=== PATIENT | male | born 1960 | race Caucasian/White ===

== ENCOUNTER 2024-09-19 15:24 | Inpatient (IN) | payer MEDICARE, OTHER ==
[2024-09-20] MEDS ORDERED: traMADol 50 MG TAB PO PRN (17:45)
[2024-09-20] MEDS: ATORVASTATIN 20 MG TAB PO SCH (21:35)
[2024-09-20] MEDS: SENNOSIDES-DOCUSATE SODIUM 1 EACH TAB PO SCH (22:11)
[2024-09-20] MEDS: ACETAMINOPHEN TAB 325 MG TAB PO PRN (22:11)
[2024-09-21 06:50] LABS: ALT 18 U/L (4-49); AST 20 U/L (17-59); African American GFR (CKD) >90 (>60 ml/min/1.73 sqM); Albumin 3.5 g/dL (3.5-5.0); Alkaline Phosphatase 60 U/L (38-126); Anion Gap 4 mmol/L; Blood Urea Nitrogen 20 mg/dL (9-20); Calcium 8.9 mg/dL (8.4-10.2); Carbon Dioxide 24 mmol/L (22-30); Chloride 108 mmol/L (98-107); Glucose 94 mg/dL (74-99); Non-African American GFR(CKD) >90 (>60 ml/min/1.73 sqM); Potassium 4.3 mmol/L (3.5-5.1); Sodium 136 mmol/L (137-145); Total Bilirubin 0.6 mg/dL (0.2-1.3)
[2024-09-21 06:56] LABS: HCT 33.6 % (39.0-53.0); HGB 11.1 gm/dL (13.0-17.5); MCH 28.6 pg (25.0-35.0); MCV 86.6 fL (80.0-100.0); Mean Platelet Volume 11.8; Platelet Count 207 k/uL (150-450); RBC 3.88 m/uL (4.30-5.90); RDW 13.8 % (11.5-15.5); WBC 7.6 k/uL (3.8-10.6)
[2024-09-21 07:33] LABS: Lymphocytes # (M) 2.05 k/uL (1.0-4.8); Neutrophils # (M) 4.94 k/uL (1.3-7.7); Neutrophils % (M) 65 %; Nucleated Red Blood Cells 0 /100 WBC (0-0); Total Cells Counted 100
[2024-09-21 07:34] LABS: RBC Morphology Normal
[2024-09-21] MEDS: LIDOCAINE 4% PATCH TOPICAL SCH (07:37)
[2024-09-21] MEDS: amLODIPine 5 MG TAB PO SCH (07:38)
--- NOTE | 2024-09-21 08:45 | XR ---
EXAMINATION TYPE: XR chest 2V DATE OF EXAM: 09/21/2024 8:37 AM COMPARISON: None CLINICAL INDICATION: Male, 64 years old with history of right pleural effusion and rib fracture; [facility] TECHNIQUE: XR chest 2V Frontal and lateral views of the chest. FINDINGS: Lungs/Pleura: Thickening of the right costophrenic angle. There is no evidence of left pleural effusi on, focal consolidation, or pneumothorax. Pulmonary vascularity: Unremarkable. Heart/mediastinum: Cardiomediastinal silhouette is unremarkable. Musculoskeletal: No acute osseous pathology. IMPRESSION: Small right pleural effusion. [facility], , 09/21/2024 8:43 AM
[2024-09-21] MEDS: KETOROLAC 15 MG/ML 1 ML VIAL IVP SCH (09:30)
--- NOTE | 2024-09-21 10:00 | P.CNPUL ---
History of Present Illness Consult date: 09/21/24 Reason for consult: dyspnea, chest pain, pleural effusion Chief complaint: Right-sided pleuritic chest pain and shortness of breath History of present illness: 64-year-old non-smoker male transferred from [facility] for right-sided organized loculated pleural effusion. Patient was admitted 3 days ago at [facility] for 5-day history of right-sided pleuritic chest pain intermittent dry nonproductive cough some shortness of breath. Patient had a fall 5-day prior to presentation with blunt trauma to the chest wall. Symptoms of note that started recently prior to coming to [facility] emergency department, CT scan of the chest performed over there with IV contrast no PE seen, right-sided moderate pleural effusion seen with some evidence of early loculation. Patient was managed with pain medicine, over the weekend ultrasound not available, right-sided thoracentesis attempted but only 1 cc of bloody pleural fluid was obtained, postprocedure chest x-ray no pneumothorax seen. In addition patient also noted to have displaced seventh rib fracture right side. Patient transferred to [facility] for evaluation of thoracic surgery in relation to VATS procedure Patient examined today, pain on the right side and shortness of breath improved compared to prior exam, still have component of pleuritic chest pain, chest x- ray performed at [facility] [id number] pleural effusion. Patient has been evaluated by cardiothoracic surgery recommendations pending ultrasound of the chest has been ordered Significant labs done white cell count 7.5, hemoglobin hematocrit 11/33 platelet count 207 chemistry significant for hyponatremia sodium 136, potassium 4.3, Review of Systems All systems: negative Past Medical History Past Medical History: Hyperlipidemia, Hypertension History of Any Multi-Drug Resistant Organisms: None Reported Past Surgical History: Appendectomy, Hernia Repair, Tonsillectomy Additional Past Surgical History / Comment(s): COLONOSCOPY. LT shoulder surgeries X 4. RT shoulder surgery Past Anesthesia/Blood Transfusion Reactions: No Reported Reaction Past Psychological History: No Psychological Hx Reported Smoking Status: Never smoker Past Alcohol Use History: None Reported Past Drug Use History: None Reported - Past Family History Mother Family Medical History: No Reported History Medications and Allergies Home Medications Medication Instructions Recorded Confirmed Type Simvastatin [Zocor] 20 mg PO HS 02/06/16 09/20/24 History amLODIPine [Norvasc] 5 mg PO DAILY 09/20/24 09/20/24 History Allergies Allergy/AdvReac Type Severity Reaction Status Date / Time bee venom protein (honey bee) Allergy Anaphylaxis Verified 09/20/24 19:31 hydromorphone [From Dilaudid] AdvReac Intermediate Nausea & Verified 09/20/24 17:31 Vomiting Physical Exam Vitals: Vital Signs Temp Pulse Resp BP Pulse Ox 09/21/24 08:25 18 09/21/24 07:32 98 F 59 L 14 145/77 95 09/21/24 07:26 98.2 F 63 18 137/80 96 09/21/24 04:00 98.2 F 52 L 19 133/79 95 09/21/24 02:00 15 09/21/24 00:00 98.0 F 55 L 15 145/62 96 09/20/24 20:00 55 L 15 09/20/24 19:40 98.0 F 61 19 149/82 95 09/20/24 17:30 16 09/20/24 16:20 98.6 F 63 16 162/86 98 Intake and Output 09/20/24 09/21/24 09/21/24 22:59 06:59 14:59 Intake Total 118 480 180 Balance 118 480 180 Intake: Oral 118 480 180 Other: # Voids 2 # Bowel Movements 0 Weight 90 kg 89.7 kg - Constitutional General appearance: average body habitus, cooperative, disheveled, mild distress - EENT Eyes: EOMI, PERRLA ENT: normal oropharynx Ears: bilateral: normal - Respiratory Respiratory: right: diminished, dullness, left: CTA - Cardiovascular Rhythm: regular Heart sounds: normal: S1, S2 - Gastrointestinal General gastrointestinal: normal bowel sounds - Integumentary Integumentary: normal turgor - Neurologic Neurologic: CNII-XII intact - Musculoskeletal Musculoskeletal: gait normal, generalized weakness, strength equal bilaterally - Psychiatric Psychiatric: A&O x's 3, appropriate affect, intact judgment & insight Results - Laboratory Findings CBC and BMP: 09/21/24 05:43 09/21/24 05:43 Abnormal lab findings: Abnormal Labs 09/21/24 09/21/24 05:43 05:43 RBC 3.88 L Hgb 11.1 L Hct 33.6 L Sodium 136 L Chloride 108 H Total Protein 6.0 L - Diagnostic Findings Chest x-ray: report reviewed, image reviewed (Finding as noted above) Assessment and Plan Assessment: Right-sided loculated pleural effusion appears to be organized hemothorax Right-sided chest pain related to above as well as seventh rib right displaced fracture Seventh rib right displaced fracture Status post mechanical fall and blunt trauma to the right side of the chest Dyslipidemia Essential hypertension Plan: Continue deep breathing/incentive spirometry Pain management with narcotic as well as nonnarcotic and lidocaine patch Consult cardiothoracic surgery for evaluation of VATS procedure CT scan of the chest without contrast Continue antihypertensive agents Norvasc Continue high intensity statins with atorvastatin Follow-up on ultrasound of the chest Further recommendations pending plan of care as per clinical response with the patient Time with Patient: Greater than 30
--- NOTE | 2024-09-21 11:31 | P.GSCN ---
History of Present Illness Consult date: 09/21/24 Reason for Consult: Right pleural effusion status post fall from standing. Requesting physician: Jonathan Hood History of present illness: This is a 64-year-old gentleman who follows on an outpatient for his primary care with Dr. Prince Salazar. He has a past medical history significant for a fall from standing on September 11, 2024 with a fractured seventh rib, hypertension, dyslipidemia, osteoarthritis, irritable bowel syndrome and is a lifetime non-smoker. The patient presented to the hospital at that time on September 11, 2024 to the emergency department at [facility] after falling and landing on his right side. The patient reports they did a chest x- ray and subsequently discharged him home, he reports the chest x-ray showed no acute pulmonary process or rib fracture. He presented back to the emergency department on September 17, 2024 with complaints of right-sided chest pain, shortness of breath, nausea and feelings like he was going to pass diarrhea. He denies any recent fever, chills, vomiting, hematemesis, hemoptysis, headache, visual disturbances, constipation, diarrhea, presyncope or syncope. According to the patient's chart a chest x-ray was completed at [facility], which demonstrated a right basilar atelectasis and effusion. For further evaluation a CT scan of the chest was completed on September 17, 2024 which demonstrated a 7 rib fracture mildly displaced, a right-sided pleural effusion and no pulmonary embolus seen. The CT scan of the chest also demonstrated mild cardiomegaly with asymmetric dilation of the right ventricle suspicious for right-sided heart failure, mild pulmonary vascular congestion with a large right pleural effusion and adjacent compressive atelectasis. The patient reports due to the findings of cardiomegaly on the CT scan of the chest he underwent a transthoracic 2D echocardiogram with results unavailable at this time. The pat ient reports this morning that his pain is much better controlled and is currently rating his pain 2 out of 10 on the pain scale. Room air oxygen saturations are 96%. A chest x-ray was completed here this morning at [facility] which demonstrates a small right pleural effusion. Tomas bsequently, due to the patient's findings of a large right pleural effusion on the CT scan at [facility], the patient was transferred to [facility] with a consult placed to Dr. Barnett from cardiothoracic surgery for further evaluation and treatment recommendations. Review of Systems A review of systems was completed and was negative except as mentioned in the HPI. Past Medical History Past Medical History: Hyperlipidemia, Hypertension, Osteoarthritis (OA) Additional Past Medical History / Comment(s): Irritable bowel syndrome History of Any Multi-Drug Resistant Organisms: None Reported Past Surgical History: Appendectomy, Hernia Repair, Tonsillectomy Additional Past Surgical History / Comment(s): COLONOSCOPY. LT shoulder surgeries X 4. RT shoulder surgery. Left hip replacement Past Anesthesia/Blood Transfusion Reactions: No Reported Reaction Past Psychological History: No Psychological Hx Reported Smoking Status: Never smoker Past Alcohol Use History: None Reported Past Drug Use History: None Reported - Past Family History Mother Family Medical History: Cancer (Skin), Hypertension Additional Family Medical History / Comment(s): GI problems Father Family Medical History: Hypertension Additional Family Medical History / Comment(s): Still living and is 90 Medications and Allergies Home Medications Medication Instructions Recorded Confirmed Type Simvastatin [Zocor] 20 mg PO HS 02/07/16 09/20/24 History amLODIPine [Norvasc] 5 mg PO DAILY 09/20/24 09/20/24 History Allergies Allergy/AdvReac Type Severity Reaction Status Date / Time bee venom protein (honey bee) Allergy Anaphylaxis Verified 09/20/24 19:31 hydromorphone [From Dilaudid] AdvReac Intermediate Nausea & Verified 09/20/24 17:31 Vomiting Surgical - Exam Vital Signs Temp Pulse Resp BP Pulse Ox 98.6 F 63 16 162/86 98 09/20/24 16:20 09/20/24 16:20 09/20/24 16:20 09/20/24 16:20 09/20/24 16:20 - General Mild pain to his right chest 2 out of 10 on the pain scale well developed, well nourished, no distress - Eyes PERRL, normal ocular movement, no pale, no icteric - ENT normal pinna, normal nares, normal mucosa, no hearing loss, no congestion - Neck Neck is supple, no lymphadenopathy. no masses, no bruits, trachea midline, no venous distension - Respiratory Lung sounds essentially clear to his left lobes, diminished to his right lower lobe. Respirations are symmetrical and nonlabored. Oxygen saturation is 96% on room air. No wheezes, rhonchi or crackles. - Cardiovascular Regular rhythm and rate. S1 and S2 present, negative for S3, gallop or murmur. - Abdomen Abdomen is soft, nontender and nondistended. Active bowel sounds present all 4 abdominal quadrants. No guarding rigidity. No organomegaly appreciated. - Genitourinary Deferred - Rectum Deferred - Integumentary Skin is warm and dry. No clubbing or cyanosis is present. Lidoderm patch in place to his right chest. no rash, no growths, no abnormal pigmentation - Neurologic No focal deficits. normal coordination, normal sensation - Musculoskeletal Moves all 4 extremities with equal strength bilateral. normal gait, normal posture - Psychiatric oriented to time, oriented to person, oriented to place, speech is normal, memory intact Results - Labs 09/21/24 05:43 09/21/24 05:43 Abnormal Lab Results - Last 24 Hours (Table) 09/21/24 09/21/24 Range/Units 05:43 05:43 RBC 3.88 L (4.30-5.90) m/uL Hgb 11.1 L (13.0-17.5) gm/dL Hct 33.6 L (39.0-53.0) % Sodium 136 L (137-145) mmol/L Chloride 108 H (98-107) mmol/L Total Protein 6.0 L (6.3-8.2) g/dL Diabetes panel 09/21/24 Range/Units 05:43 Sodium 136 L (137-145) mmol/L Potassium 4.3 (3.5-5.1) mmol/L Chloride 108 H (98-107) mmol/L Carbon Dioxide 24 (22-30) mmol/L BUN 20 (9-20) mg/dL Creatinine 0.88 (0.66-1.25) mg/dL Glucose 94 (74-99) mg/dL Calcium 8.9 (8.4-10.2) mg/dL AST 20 (17-59) U/L ALT 18 (4-49) U/L Alkaline Phosphatase 60 (38-126) U/L Total Protein 6.0 L (6.3-8.2) g/dL Albumin 3.5 (3.5-5.0) g/dL Calcium panel 09/21/24 Range/Units 05:43 Calcium 8.9 (8.4-10.2) mg/dL Albumin 3.5 (3.5-5.0) g/dL Pituitary panel 09/21/24 Range/Units 05:43 Sodium 136 L (137-145) mmol/L Potassium 4.3 (3.5-5.1) mmol/L Chloride 108 H (98-107) mmol/L Carbon Dioxide 24 (22-30) mmol/L BUN 20 (9-20) mg/dL Creatinine 0.88 (0.66-1.25) mg/dL Glucose 94 (74-99) mg/dL Calcium 8.9 (8.4-10.2) mg/dL Adrenal panel 09/21/24 Range/Units 05:43 Sodium 136 L (137-145) mmol/L Potassium 4.3 (3.5-5.1) mmol/L Chloride 108 H (98-107) mmol/L Carbon Dioxide 24 (22-30) mmol/L BUN 20 (9-20) mg/dL Creatinine 0.88 (0.66-1.25) mg/dL Glucose 94 (74-99) mg/dL Calcium 8.9 (8.4-10.2) mg/dL Total Bilirubin 0.6 (0.2-1.3) mg/dL AST 20 (17-59) U/L ALT 18 (4-49) U/L Alkaline Phosphatase 60 (38-126) U/L Total Protein 6.0 L (6.3-8.2) g/dL Albumin 3.5 (3.5-5.0) g/dL - Imaging Chest x-ray: report reviewed, image reviewed Additional studies: Ultrasound of the chest results remain pending. Assessment and Plan Assessment: Right-sided loculated pleural effusion, status post fall from standing Right-sided chest pain, likely secondary to fracture of seventh rib right chest Hypertension Hyperlipidemia Osteoarthritis Lifetime non-smoker Plan: The patient was seen and examined at his bedside on the third floor cardiac stepdown unit, with his daughter present at his bedside. His chart and diagnostics were reviewed. His case was discussed in detail with Dr. Tyrel Barnett from cardiothoracic surgery. Ultrasound results of the chest remain pending. We will consult interventional radiology for pigtail catheter placement, once pigtail has been placed connect to low continuous wall suction - 20 cm H2O. The patient may require alteplase/dornase treatments once the pigtail catheter has been placed. Pain management per current as needed orders. An incentive spirometry has been ordered and will encourage use 10 times every hour while awake. Continue to monitor daily chest x-rays for resolution of right-sided pleural effusion. Increase activity as tolerated, out of bed for all meals. Ambulate as tolerated. Medical management other comorbidities per primary care service and pulmonary care service. More recommendations to follow based on patient's clinical course. Thank you Dr. Hood for this consult and we look forward to working with you in the care of this patient. I have personally seen and examined the patient, performed the documentation and the assessment and plan as written. Number of minutes spent on the visit: 30. SWATHI Love
--- NOTE | 2024-09-21 11:42 | US ---
EXAMINATION TYPE: US chest DATE OF EXAM: 09/21/2024 COMPARISON: NONE CLINICAL INDICATION: Male, 64 years old with history of right pleural effusion; TECHNIQUE: Grayscale imaging of the chest. Targeted ultrasound of the posterior lower right hemithor ax FINDINGS: EXAM MEASUREMENTS: Right Pleural Effusion pocket size: 2.3 cm Right skin surface to fluid distance: 17.7 cm Right side marked for possible thoracentesis outside the dept. Pulmonologists are able to review the images in the patient?s EMR. IMPRESSIONS: Large Right pleural effusion marked for thoracentesis. [facility], , 09/21/2024 11:39 AM
--- NOTE | 2024-09-21 12:02 | CT ---
EXAMINATION TYPE: CT chest wo con CT DLP: 386.7 mGycm, Automated exposure control for dose reduction was used. DATE OF EXAM: 09/21/2024 11:47 AM COMPARISON: Ultrasound chest 09/21/2024, chest radiograph 09/21/2024, outside institution CTA chest 1 11/17/2023 CLINICAL INDICATION:Male, 64 years old with history of Right-sided loculated pleural effusion; PH[facility], F luid on lungs, recent Rt sided rib fx TECHNIQUE: Multiple axial images were obtained through the chest without IV contrast. Lack of IV or o ral contrast limits evaluation of solid and hollow organ viscera. . Coronal and sagittal reformats re viewed. FINDINGS: LUNGS/ PLEURA: Left lung is relatively clear with minimal left lower lobe subsegmental atelectasis. N o pneumothorax. Moderate to large size right pleural effusion with some hyperdense components layerin g dependently. Slightly decreased size from prior CT. Complete atelectasis of the right lower lobe wi th some air bronchograms. Remaining right lung is clear. AIRWAY: Patent and unremarkable.. HEART: Size within normal limits.Trace pericardial effusion. Small coronary arterial calcifications. MEDIASTINUM: No gross evidence of adenopathy. VASCULATURE: Descending thoracic aortic aneurysm measured 4.0 cm. Ectasia of the aortic root measurin g up to 3.9 cm. Descending thoracic aorta measures up to 2.6 cm. Aneurysm dilatation of the visualize d infrarenal abdominal aorta measuring up to 3.2 cm. MUSCULOSKELETAL: Acute right anterior lateral minimally displaced seventh rib fracture (series 205, i mage 44). Post surgical changes right shoulder arthroplasty. SOFT TISSUES/LYMPH NODES: Unremarkable. LOWER NECK: No significant findings. UPPER ABDOMEN: No significant findings. IMPRESSION: 1. Marginal decrease in size of moderate to large right pleural effusion. There is layering hyperdens e components likely representing hemothorax. 2. Minimally displaced acute right anterolateral seventh rib fracture redemonstrated. 3. Trace similar pericardial effusion. 4. Ascending thoracic aortic aneurysm measuring up to 4.0 cm. Ectasia of the aortic root measures 3.9 cm. Partial visualization of the infrarenal abdominal aortic aneurysm measuring at least 3.2 cm. [facility], , 09/21/2024 12:00 PM
[2024-09-21] MEDS: ENOXAPARIN 40 MG/0.4 ML SYRINGE SQ SCH (16:13)
[2024-09-21 16:50] LABS: INR 0.9 (<1.2); Prothrombin Time 10.4 sec (10.0-12.5)
[2024-09-21] MEDS: ATORVASTATIN 10 MG TAB PO SCH (20:02)
[2024-09-21] MEDS: MELATONIN 5 MG TABLET PO PRN (20:07)
--- NOTE | 2024-09-21 20:36 | HP ---
HISTORY AND PHYSICAL CHIEF COMPLAINT: Right-sided pleural effusion, chest pain, and shortness of breath. HISTORY OF PRESENT ILLNESS: This is a 64-year-old gentleman with a past medical history of hypertension, hyperlipidemia, who was admitted with shortness of breath and chest pain, was found to have massive right pleural effusion. [facility] Dr. Hood attempted pleural tap, in which only minimal fluid obtained. The patient was transferred for possible evaluation by Cardiothoracic Surgery and VATS procedure versus aspiration. There is no history of any fever, rigors, or chills at this time. PAST MEDICAL HISTORY: Hypertension, hyperlipidemia. Rest of the history and rest of the chart is also reviewed. HOME MEDICATIONS: Reviewed, Norvasc, doses and rest of medications reviewed. ALLERGIES: Bee venom. FAMILY HISTORY: History of hypertension. SOCIAL HISTORY: No smoking. No alcohol intake. REVIEW OF SYSTEMS: Fourteen-point review is negative except as mentioned earlier. PHYSICAL EXAMINATION: VITAL SIGNS: Pulse is 85, blood pressure 140/80, respirations 14. HEENT: Conjunctivae normal. NECK: No JVD. CARDIOVASCULAR: S1, S2. RESPIRATIONS: Breath sounds diminished at the bases. ABDOMEN: Soft, nontender. LEGS: No edema. NERVOUS SYSTEM: Nonfocal. LABORATORY DATA: Hemoglobin 11.1. Otherwise, chest CT, moderate large right pleural effusion with layering right anterolateral 7th rib fracture, ascending thoracic aortic aneurysm. The rest of the chart is reviewed. ASSESSMENT: 1. Right pleural effusion, possibly hemothorax. 2. Right anterolateral seventh rib fracture. 3. Ascending aortic aneurysm 4 cm with ectasia of aortic root. 4. Hypertension. 5. Hyperlipidemia. 6. Mild anemia. RECOMMENDATIONS: Recommend to continue current management and continue symptomatic treatment. Otherwise, closely follow with Cardiothoracic Surgery and as well as Pulmonology. Guarded prognosis. Further recommendations to follow. Most likely the patient had a fracture and likely secondary hemothorax or pleural effusion. We will continue to monitor. Further recommendations to follow. MMODL / IJN: [id number] /
[2024-09-22 06:58] LABS: Basophils % (A) 0 %; Eosinophils # (A) 0.5 k/uL (0-0.7); Eosinophils % (A) 6 %; HCT 34.1 % (39.0-53.0); HGB 11.2 gm/dL (13.0-17.5); Lymphocytes # (A) 1.8 k/uL (1.0-4.8); Lymphocytes % (A) 23 %; MCH 28.5 pg (25.0-35.0); MCHC 32.9 g/dL (31.0-37.0); MCV 86.5 fL (80.0-100.0); Mean Platelet Volume 11.5; Monocytes # (A) 0.5 k/uL (0-1.0); Monocytes % (A) 7 %; Neutrophils # (A) 4.9 k/uL (1.3-7.7); Neutrophils % (A) 63 %; Platelet Count 234 k/uL (150-450); RBC 3.95 m/uL (4.30-5.90); RDW 13.6 % (11.5-15.5); WBC 7.8 k/uL (3.8-10.6)
[2024-09-22 07:42] LABS: African American GFR (CKD) >90 (>60 ml/min/1.73 sqM); Anion Gap 5 mmol/L; Blood Urea Nitrogen 29 mg/dL (9-20); Calcium 9.2 mg/dL (8.4-10.2); Carbon Dioxide 23 mmol/L (22-30); Chloride 106 mmol/L (98-107); Glucose 96 mg/dL (74-99); Non-African American GFR(CKD) 89 (>60 ml/min/1.73 sqM); Potassium 4.6 mmol/L (3.5-5.1); Sodium 134 mmol/L (137-145)
--- NOTE | 2024-09-22 08:14 | XR ---
EXAMINATION TYPE: XR chest 1V portable DATE OF EXAM: 09/22/2024 6:49 AM COMPARISON: Chest radiograph from one day prior. CLINICAL INDICATION: Male, 64 years old with history of Right pleural effusion; [facility] TECHNIQUE: XR chest 1V portable Frontal view of the chest. FINDINGS: Lungs/Pleura: Thickening of the right costophrenic angle. There is no evidence of left pleural effusi on, focal consolidation, or pneumothorax. Pulmonary vascularity: Unremarkable. Heart/mediastinum: Cardiomediastinal silhouette is unremarkable. Musculoskeletal: No acute osseous pathology. IMPRESSION: Small right pleural effusion. [facility], , 09/22/2024 8:12 AM
--- NOTE | 2024-09-22 10:44 | P.PN ---
Subjective Progress Note Date: 09/22/24 Principal diagnosis: Right-sided loculated pleural effusion appears to be organized hemothorax Right-sided chest pain related to above as well as seventh rib right displaced fracture Seventh rib right displaced fracture Status post mechanical fall and blunt trauma to the right side of the chest Dyslipidemia Essential hypertension September 22, 2024, cardiothoracic surgery has evaluated the patient, recommended more conservative approach with interventional radiology due to the pigtail catheter and use of Pulmozyme and alteplase for organized hemothorax. VATS procedure is currently on hold, CBC from today reviewed white cell count 7.8 hemoglobin platelet count of 234. Coags okay, BUN/creatinine 29/0.91 sodium [address] scan of the chest shows moderate to large right- sided pleural effusion with layering Hyzyd is suggestive of hemothorax, ultraso und showed small pleural effusion, noted IR is on consult for pigtail catheter placement 64-year-old non-smoker male transferred from [facility] for right-sided organized loculated pleural effusion. Patient was admitted 3 days ago at [facility] for 5-day history of right-sided pleuritic chest pain intermittent dry nonproductive cough some shortness of breath. Patie nt had a fall 5-day prior to presentation with blunt trauma to the chest wall. Symptoms of note that started recently prior to coming to [facility] emergency department, CT scan of the chest performed over there with IV contrast no PE seen, right-sided moderate pleural effusion seen with some evidence of early loculation. Patient was managed with pain medicine, over the weekend ultrasound not available, right-sided thoracentesis attempted but only 1 cc of bloody pleural fluid was obtained, postprocedure chest x-ray no pneumothorax seen. In addition patient also noted to have displaced seventh rib fracture right side. Patient transferred to [facility] for evaluation of thoracic surgery in relation to VATS procedure Patient examined today, pain on the right side and shortness of breath improved compared to prior exam, still have component of pleuritic chest pain, chest x-r ay performed at [facility] [id number] pleural effusion. Patient has been evaluated by cardiothoracic surgery recommendations pending ultrasound of the chest has been ordered Significant labs done white cell count 7.5, hemoglobin hematocrit platelet count 207 chemistry significant for hyponatremia sodium 136, potassium 4.3, Objective - Vital Signs Vital signs: Vital Signs Temp 97.9 F 09/22/24 08:45 Pulse 62 09/22/24 10:27 Resp 12 09/22/24 10:27 BP 146/84 09/22/24 10:27 Pulse Ox 97 09/22/24 10:27 FiO2 Intake & Output 09/21/24 09/22/24 09/22/24 18:59 06:59 18:59 Intake Total 540 Balance 540 Weight 89.9 kg Intake: Oral 540 Other: Voiding Method Toilet Toilet # Voids 1 1 # Bowel Movements 0 - Exam - Constitutional General appearance: average body habitus, cooperative, disheveled, mild distress - EENT Eyes: EOMI, PERRLA ENT: normal oropharynx Ears: bilateral: normal - Respiratory Respiratory: right: diminished, dullness, left: CTA - Cardiovascular Rhythm: regular Heart sounds: normal: S1, S2 - Gastrointestinal General gastrointestinal: normal bowel sounds - Integumentary Integumentary: normal turgor - Neurologic Neurologic: CNII-XII intact - Musculoskeletal Musculoskeletal: gait normal, generalized weakness, strength equal bilaterally - Psychiatric Psychiatric: A&O x's 3, appropriate affect, intact judgment & insight - Labs CBC & Chem 7: 09/22/24 06:15 09/22/24 06:15 Labs: Abnormal Lab Results - Last 24 Hours (Table) 09/22/24 09/22/24 Range/Units 06:15 06:15 RBC 3.95 L (4.30-5.90) m/uL Hgb 11.2 L (13.0-17.5) gm/dL Hct 34.1 L (39.0-53.0) % Sodium 134 L (137-145) mmol/L BUN 29 H (9-20) mg/dL Assessment and Plan Assessment: Right-sided loculated pleural effusion appears to be organized hemothorax Right-sided chest pain related to above as well as seventh rib right displaced fracture Seventh rib right displaced fracture Status post mechanical fall and blunt trauma to the right side of the chest Dyslipidemia Essential hypertension Plan: Continue deep breathing/incentive spirometry Pain management with narcotic as well as nonnarcotic and lidocaine patch Consult cardiothoracic surgery for evaluation of VATS procedure, at this point of time cardiothoracic surgery is leaning toward conservative approach of pigtail catheter with instillation of Pulmozyme and Cathflo CT scan of the chest without contrast, reviewed Continue antihypertensive agents Norvasc Continue high intensity statins with atorvastatin Follow-up on ultrasound of the chest, finding reviewed Further recommendations pending plan of care as per clinical response with the patient
--- NOTE | 2024-09-22 11:28 | US ---
EXAMINATION TYPE: US guided chest tube insertion DATE OF EXAM: 09/22/2024 11:12 AM COMPARISON: Prior CT/US. CLINICAL INDICATION:Male, 64 years old with history of see IR consult for ordering information; , rig ht hemothorax TECHNIQUE: Ultrasound-guided chest tube insertion. ATTENDING: Matt Cantu D.O. PROCEDURE: Informed consent was obtained. Initial ultrasound localizer images were taken which showed safest allowable access to the right pleu ral space. The patient was prepped, draped in the usual sterile fashion, and locally anesthetized. A 8.5 polish pig tail catheter was placed utilizing trocar technique. Approximately 1300 mL of bloody thin fluid was drained and sent to the lab for analysis. A bag was t hen attached the catheter. There was no blood loss and post-procedure hemostasis was achieved. The patient tolerated the procedure well without complication. Patient was [facility] floor in stable condition. IMPRESSION: Ultrasound-guided right chest thoracotomy tube placement. [facility], , 09/22/2024 11:26 AM
--- NOTE | 2024-09-22 11:31 | P.PN ---
Subjective Progress Note Date: 09/22/24 Principal diagnosis: Right-sided loculated pleural effusion fracture of right 7th rib status post fall from standing. History of hypertension, hyperlipidemia, osteoarthritis, lifetime non-smoker The patient was seen and examined with Dr. Barnett sitting up in a recliner on the cardiac stepdown unit in no acute distress. Does complain of expected right sided chest pain, denies shortness of breath currently. Remains in sinus rhythm, hemodynamically stable. Currently on room air with oxygen saturation in the mid 90s. Reviewed CT and CXR. Waiting for pigtail cathter to be placed by IR. Dr. Barnett discussed with the patient and his significant other the reason for the pigtail, if no drainage patient may need VATS procedure. Discussed risks/benefits. No other new concerns at this time. Objective - Vital Signs Vital signs: Vital Signs Temp 97.9 F 09/22/24 08:45 Pulse 59 L 09/22/24 08:45 Resp 14 09/22/24 08:45 BP 139/80 09/22/24 08:45 Pulse Ox 98 09/22/24 08:45 FiO2 Intake & Output 09/21/24 09/22/24 09/22/24 18:59 06:59 18:59 Intake Total 540 Balance 540 Weight 89.9 kg Intake: Oral 540 Other: Voiding Method Toilet # Voids 1 1 # Bowel Movements 0 - Exam CONSTITUTIONAL: Appears comfortable, cooperative, no acute distress RESPIRATORY: Lungs sounds diminished on the right. Respirations even, nonlabored. Currently on room air with oxygen saturation 96% CARDIOVASCULAR: S1, S2 present. Regular rate and rhythm, sinus rhythm on telemetry. Palpable peripheral pulses bilaterally GASTROINTESTINAL: Abdomen soft, nontender, nondistended. Active bowel sounds present 4 quadrants. Tolerating diet GENITOURINARY: Continues to void INTEGUMENTARY: Skin is warm and dry NEUROLOGIC: Cranial nerves II through XII intact MUSKULOSKELETAL: Able to move all extremities, strength equal bilaterally, gait normal PSYCHIATRIC: Alert and oriented to person place and time, appropriate affect, intact judgment and insight - Allied health notes Allied health notes reviewed: nursing - Labs CBC & Chem 7: 09/22/24 06:15 09/22/24 06:15 Labs: Abnormal Lab Results - Last 24 Hours (Table) 09/22/24 09/22/24 Range/Units 06:15 06:15 RBC 3.95 L (4.30-5.90) m/uL Hgb 11.2 L (13.0-17.5) gm/dL Hct 34.1 L (39.0-53.0) % Sodium 134 L (137-145) mmol/L BUN 29 H (9-20) mg/dL - Imaging and Cardiology Chest x-ray: report reviewed, image reviewed CT scan - chest: report reviewed, image reviewed Assessment and Plan Assessment: Right-sided loculated pleural effusion, right sided 7th rib fracture, status post fall from standing Right-sided chest pain, likely secondary to above History of hypertension Hyperlipidemia Osteoarthritis Lifetime non-smoker Plan: Will wait for IR to place pigtail cathter, monitor drainage Pain control per current medication regimen Encourage IS, pulmonary hygiene Increase activity as tolerated Medical management of other comorbidities per internal medicine, pulmonology More recommendations to follow
[2024-09-22 19:22] LABS: Glucose, BF Source Pleural Fluid; Glucose, Body Fluid 39 mg/dL
[2024-09-22 19:23] LABS: Appearance,BF Grossly Bloody (Clear)
[2024-09-22 19:34] LABS: LDH, Body Fluid Source Pleural Fluid
--- NOTE | 2024-09-23 03:14 | PN ---
PROGRESS NOTE DATE OF SERVICE: 09/22/2024 SUBJECTIVE: This is a 64-year-old gentleman admitted with right pleural effusion, mostly hemothorax, had a chest tube insertion and drainage and the tube is draining altered blood at this time. Multiple consultants are following the patient closely. The patient apparently fell from a floor of a house, which is being build and injured the right chest resulting in multiple rib fractures. PAST MEDICAL HISTORY: Reviewed. REVIEW OF SYSTEMS: A 14-point review of systems is negative except as mentioned earlier. CURRENT MEDICATIONS: Reviewed. PHYSICAL EXAMINATION: VITAL SIGNS: Pulse is 53, blood pressure 153/80, respirations 14. HEENT: Conjunctivae normal. NECK: No JVD. CARDIOVASCULAR: S1, S2. RESPIRATIONS: Breath sounds diminished in the right side. ABDOMEN: Soft. NERVOUS SYSTEM: Nonfocal. LABORATORY DATA: Reviewed. ASSESSMENT: 1. Right massive hemothorax, possibly secondary to rib fractures, status post chest tube drainage. 2. Right anterolateral seventh rib fracture. 3. Ascending aortic aneurysm 4 cm with ectasia of aortic root. 4. Hypertension. 5. Hyperlipidemia. 6. Mild anemia. RECOMMENDATIONS: Recommend to continue current management and continue symptomatic treatment. Otherwise, continue with chest tube drainage. Repeat labs. Pain management. Otherwise, continue with the current medications. DVT prophylaxis. Further recommendations to follow. See orders for further details. MMODL / IJN: [id number] /
[2024-09-23 07:14] LABS: Basophils % (A) 0 %; Eosinophils # (A) 0.4 k/uL (0-0.7); Eosinophils % (A) 4 %; HCT 34.4 % (39.0-53.0); HGB 11.2 gm/dL (13.0-17.5); Lymphocytes # (A) 1.4 k/uL (1.0-4.8); Lymphocytes % (A) 15 %; MCHC 32.6 g/dL (31.0-37.0); MCV 85.9 fL (80.0-100.0); Mean Platelet Volume 11.5; Monocytes # (A) 0.6 k/uL (0-1.0); Monocytes % (A) 6 %; Neutrophils # (A) 6.6 k/uL (1.3-7.7); Neutrophils % (A) 73 %; Platelet Count 253 k/uL (150-450); RBC 4.01 m/uL (4.30-5.90); RDW 13.9 % (11.5-15.5)
[2024-09-23 07:23] LABS: Partial Thromboplastin Time 24.9 sec (22.0-30.0)
[2024-09-23 07:32] LABS: ALT 15 U/L (4-49); AST 18 U/L (17-59); African American GFR (CKD) 79 (>60 ml/min/1.73 sqM); Albumin 3.6 g/dL (3.5-5.0); Alkaline Phosphatase 64 U/L (38-126); Anion Gap 6 mmol/L; Blood Urea Nitrogen 30 mg/dL (9-20); Calcium 9.5 mg/dL (8.4-10.2); Carbon Dioxide 25 mmol/L (22-30); Chloride 107 mmol/L (98-107); Glucose 101 mg/dL (74-99); Non-African American GFR(CKD) 68 (>60 ml/min/1.73 sqM); Potassium 4.9 mmol/L (3.5-5.1); Sodium 138 mmol/L (137-145); Total Bilirubin 0.8 mg/dL (0.2-1.3)
--- NOTE | 2024-09-23 09:14 | XR ---
EXAMINATION TYPE: XR chest 1V portable DATE OF EXAM: 09/23/2024 7:03 AM COMPARISON: Chest radiographs from 09/22/2024 CLINICAL INDICATION: Male, 64 years old with history of effusion; H TECHNIQUE: XR chest 1V portable Frontal view of the chest. FINDINGS: Lungs/Pleura: Thickening of the right costophrenic angle. There is no evidence of left pleural effusi on, focal consolidation, or pneumothorax. Pulmonary vascularity: Unremarkable. Heart/mediastinum: Cardiomediastinal silhouette is unremarkable. Musculoskeletal: No acute osseous pathology. IMPRESSION: Small right pleural effusion. [facility], , 09/23/2024 9:12 AM
[2024-09-23 12:37] LABS: Glucose, BF Source Pleural Fluid; Glucose, Body Fluid 36 mg/dL
[2024-09-23 12:50] LABS: LDH, Body Fluid Source Pleural Fluid
--- NOTE | 2024-09-23 15:00 | P.PN ---
Subjective Progress Note Date: 09/23/24 Principal diagnosis: Right-sided loculated pleural effusion fracture of right 7th rib status post fall from standing. History of hypertension, hyperlipidemia, osteoarthritis, lifetime non-smoker POD #1 placement of right sided pigtail catheter by interventional radiology The patient was seen and examined with Dr. Barnett sitting up in a recliner on the cardiac stepdown unit in no acute distress. Does complain of expected right sided chest pain, denies shortness of breath currently. Remains in sinus rhythm, hemodynamically stable. Currently on room air with oxygen saturation in the mid 90s. Reviewed CXR. Discussed with the patient that even though he had a significant amount of drainage he does still have fluid, likely blood trapped and will need right sided video-assisted thoracoscopic surgery to washout and remove. Our plan is for surgery tomorrow with Dr. Barnett. This was discussed with the patient, he is frustrated with being in the hospital for so long as he is concerned about the finances but he does understand the need for surgery. No other new concerns. Objective - Vital Signs Vital signs: Vital Signs Temp 98.6 F 09/23/24 10:56 Pulse 78 09/23/24 10:56 Resp 13 09/23/24 10:56 BP 127/70 09/23/24 10:56 Pulse Ox 95 09/23/24 10:56 FiO2 Intake & Output 09/22/24 09/23/24 09/23/24 18:59 06:59 18:59 Intake Total 180 Output Total 141 310 10 Balance 39 -310 -10 Weight 87.4 kg Intake: Oral 180 Output: Chest Tube Drainage 141 10 10 Right 141 10 10 Urine 300 Other: Voiding Method Toilet Toilet Toilet # Voids 2 1 # Bowel Movements 0 - Exam CONSTITUTIONAL: Appears comfortable, cooperative, no acute distress RESPIRATORY: Lungs sounds diminished on the right. Respirations even, nonlabored. Currently on room air with oxygen saturation 96%. Right-sided pigtail catheter placed yesterday, over 2 L output since insertion CARDIOVASCULAR: S1, S2 present. Regular rate and rhythm, sinus rhythm on telemetry. Palpable peripheral pulses bilaterally GASTROINTESTINAL: Abdomen soft, nontender, nondistended. Active bowel sounds present 4 quadrants. Tolerating diet GENITOURINARY: Continues to void INTEGUMENTARY: Skin is warm and dry NEUROLOGIC: Cranial nerves II through XII intact MUSKULOSKELETAL: Able to move all extremities, strength equal bilaterally, gait normal PSYCHIATRIC: Alert and oriented to person place and time, appropriate affect, intact judgment and insight - Allied health notes Allied health notes reviewed: nursing - Labs CBC & Chem 7: 09/23/24 06:40 09/23/24 06:40 Labs: Abnormal Lab Results - Last 24 Hours (Table) 09/22/24 09/23/24 09/23/24 Range/Units 11:44 06:40 06:40 RBC 4.01 L (4.30-5.90) m/uL Hgb 11.2 L (13.0-17.5) gm/dL Hct 34.4 L (39.0-53.0) % BUN 30 H (9-20) mg/dL Glucose 101 H (74-99) mg/dL Total Protein 6.0 L (6.3-8.2) g/dL Fluid Appearance Grossly Bloody A (Clear) Microbiology - Last 24 Hours (Table) 09/22/24 11:44 Gram Stain - Preliminary Pleural Fluid Body Fluid Culture - Preliminary - Imaging and Cardiology Chest x-ray: report reviewed, image reviewed Assessment and Plan Assessment: Right-sided loculated pleural effusion, right sided 7th rib fracture, status post fall from standing, status post pigtail catheter placement by interventional radiology Right-sided chest pain, likely secondary to above History of hypertension Hyperlipidemia Osteoarthritis Lifetime non-smoker Plan: Will plan for right sided video-assisted thoracoscopic surgery with washout tomorrow by Dr. Barnett N.p.o. after midnight Pain control per current medication regimen Encourage IS, pulmonary hygiene Increase activity as tolerated Medical management of other comorbidities per internal medicine, pulmonology More recommendations to follow
[2024-09-23] MEDS: LACTULOSE 20 GM/30 ML CUP PO SCH (15:52)
[2024-09-23 17:53] LABS: Appearance,BF Grossly Bloody (Clear)
--- NOTE | 2024-09-24 04:42 | PN ---
PROGRESS NOTE DATE OF SERVICE: 09/23/2024 SUBJECTIVE: This is a 64-year-old gentleman admitted with hemothorax possibly after injury, had a chest tube drainage. Repeat chest x-ray showed significant improvement. No chest pain. No palpitations. Multiple consultants are following the patient closely. OBJECTIVE: VITAL SIGNS: Pulse is 78, blood pressure 127/70, respirations 15. HEENT: Conjunctivae normal. CARDIOVASCULAR: S1, S2. RESPIRATIONS: Breath sounds diminished at the bases on the right side. ABDOMEN: Soft. LABORATORY DATA: Hemoglobin 11. ASSESSMENT: 1. Right massive hemothorax, possibly secondary to rib fractures, status post chest tube drainage. 2. Right anterolateral 7th rib fracture. 3. Ascending aortic aneurysm 4 cm with ectasia of the aortic root. 4. Hypertension. 5. Hyperlipidemia. RECOMMENDATIONS: Recommend to continue current management, continue symptomatic treatment. Repeat labs. Closely follow with Cardiothoracic Surgery. Prognosis guarded. Further recommendations to follow. Pulmonary is following the patient closely. MMODL / IJN: [id number] /
[2024-09-24 06:38] LABS: Basophils % (A) 0 %; Eosinophils # (A) 0.6 k/uL (0-0.7); Eosinophils % (A) 6 %; HCT 33.8 % (39.0-53.0); HGB 10.9 gm/dL (13.0-17.5); Lymphocytes # (A) 1.7 k/uL (1.0-4.8); Lymphocytes % (A) 17 %; MCH 27.9 pg (25.0-35.0); MCHC 32.2 g/dL (31.0-37.0); MCV 86.7 fL (80.0-100.0); Mean Platelet Volume 11.4; Monocytes # (A) 0.8 k/uL (0-1.0); Monocytes % (A) 8 %; Neutrophils # (A) 6.8 k/uL (1.3-7.7); Neutrophils % (A) 68 %; Platelet Count 249 k/uL (150-450); RDW 13.4 % (11.5-15.5)
--- NOTE | 2024-09-24 08:51 | XR ---
EXAMINATION TYPE: XR chest 1V portable DATE OF EXAM: 09/24/2024 5:18 AM COMPARISON: Chest radiographs from 09/23/2024 CLINICAL INDICATION: Male, 64 years old with history of effusion; H TECHNIQUE: XR chest 1V portable Frontal view of the chest. FINDINGS: Lungs/Pleura: Thickening of the right costophrenic angle. There is no evidence of left pleural effusi on, focal consolidation, or pneumothorax. Pulmonary vascularity: Unremarkable. Heart/mediastinum: Cardiomediastinal silhouette is unremarkable. Musculoskeletal: No acute osseous pathology. IMPRESSION: Small right pleural effusion. [facility], , 09/24/2024 8:49 AM
--- NOTE | 2024-09-24 09:33 | P.PN ---
Subjective Progress Note Date: 09/24/24 Principal diagnosis: Organized hemothorax right-sided Right-sided loculated pleural effusion appears to be organized hemothorax Right-sided chest pain related to above as well as seventh rib right displaced fracture Seventh rib right displaced fracture Status post mechanical fall and blunt trauma to the right side of the chest Dyslipidemia Essential hypertension September 24, 2024, patient seen evaluate examined during rounds labs reviewed medications reviewed care plan discussed with the patient as well as staff at length, pain is minimal, predominantly at the chest tube incision site. Patient continue to have output in Pleur-evac. No airleak is present. So far almost 2.4 L of fluid has been collected a chest tube into Pleur-evac, currently patient has second Pleur-evac. Due to presence of loculation and adhesion patient is being planned for VATS later on today thoracic surgery September 22, 2024, cardiothoracic surgery has evaluated the patient, recommended more conservative approach with interventional radiology due to the pigtail catheter and use of Pulmozyme and alteplase for organized hemothorax. VATS procedure is currently on hold, CBC from today reviewed white cell count 7.8 hemoglobin platelet count of 234. Coags okay, BUN/creatinine 29/0.91 sodium [address] scan of the chest shows moderate to large right- sided pleural effusion with layering Hyzyd is suggestive of hemothorax, ultrasound showed small pleural effusion, noted IR is on consult for pigtail catheter placement 64-year-old non-smoker male transferred from [facility] for right-sided organized loculated pleural effusion. Patient was admitted 3 days ago at [facility] for 5-day history of right-sided pleuritic chest pain intermittent dry nonproductive cough some shortness of breath. Patient had a fall 5-day prior to presentation with blunt trauma to the chest wall. Symptoms of note that started recently prior to coming to [facility] emergency department, CT scan of the chest performed over there with IV contrast no PE seen, right-sided moderate pleural effusion seen with some evidence of early loculation. Patient was managed with pain medicine, over the weekend ultrasound not available, right-sided thoracentesis attempted but only 1 cc of bloody pleural fluid was obtained, postprocedure chest x-ray no pneumothorax seen. In addition patient also noted to have displaced seventh rib fracture right side. Patient transferred to [facility] for evaluation of thoracic surgery in relation to VATS procedure Patient examined today, pain on the right side and shortness of breath improved compared to prior exam, still have component of pleuritic chest pain, chest x- ray performed at [facility] [id number] pleural effusion. Patient has been evaluated by cardiothoracic surgery recommendations pending ultrasound of the chest has been ordered Significant labs done white cell count 7.5, hemoglobin hematocrit 11/33 platelet count 207 chemistry significant for hyponatremia sodium 136, potassium 4.3, Objective - Vital Signs Vital signs: Vital Signs Temp 99.0 F 09/24/24 03:04 Pulse 67 09/24/24 03:04 Resp 17 09/24/24 03:04 BP 145/72 09/24/24 03:04 Pulse Ox 94 L 09/24/24 03:04 FiO2 Intake & Output 09/23/24 09/24/24 09/24/24 18:59 06:59 18:59 Output Total 10 2 Balance -10 -2 Weight 88 kg Output: Chest Tube Drainage 10 2 Right 10 2 Other: Voiding Method Toilet Toilet # Voids 4 - Exam - Constitutional General appearance: average body habitus, cooperative, disheveled, mild distress - EENT Eyes: EOMI, PERRLA ENT: normal oropharynx Ears: bilateral: normal - Respiratory Respiratory: right: diminished, dullness, left: CTA - Cardiovascular Rhythm: regular Heart sounds: normal: S1, S2 - Gastrointestinal General gastrointestinal: normal bowel sounds - Integumentary Integumentary: normal turgor - Neurologic Neurologic: CNII-XII intact - Musculoskeletal Musculoskeletal: gait normal, generalized weakness, strength equal bilaterally - Psychiatric Psychiatric: A&O x's 3, appropriate affect, intact judgment & insight - Labs CBC & Chem 7: 09/24/24 05:18 09/23/24 06:40 Labs: Abnormal Lab Results - Last 24 Hours (Table) 09/22/24 09/24/24 Range/Units 11:00 05:18 RBC 3.90 L (4.30-5.90) m/uL Hgb 10.9 L (13.0-17.5) gm/dL Hct 33.8 L (39.0-53.0) % Fluid Appearance Grossly Bloody A (Clear) Microbiology - Last 24 Hours (Table) 09/22/24 11:00 Gram Stain - Preliminary Pleural Fluid Body Fluid Culture - Preliminary 09/22/24 11:44 Gram Stain - Preliminary Pleural Fluid Body Fluid Culture - Preliminary Assessment and Plan Assessment: Right-sided loculated pleural effusion appears to be organized hemothorax status post chest tube so far 2.4 L of blood tinged fluid drained Right-sided chest pain related to above as well as seventh rib right displaced fracture Seventh rib right displaced fracture Status post mechanical fall and blunt trauma to the right side of the chest Dyslipidemia Essential hypertension Plan: Patient is being planned for right-sided VATS Continue deep breathing/incentive spirometry Pain management with narcotic as well as nonnarcotic and lidocaine patch CT scan of the chest without contrast, reviewed as noted above Continue antihypertensive agents Norvasc Continue high intensity statins with atorvastatin ultrasound of the chest, finding reviewed Further recommendations pending plan of care as per clinical response with the patient Time with Patient: Greater than 30
[2024-09-24 09:45] LABS: African American GFR (CKD) 79 (>60 ml/min/1.73 sqM); Anion Gap 4 mmol/L; Blood Urea Nitrogen 29 mg/dL (9-20); Carbon Dioxide 23 mmol/L (22-30); Chloride 108 mmol/L (98-107); Glucose 94 mg/dL (74-99); Non-African American GFR(CKD) 69 (>60 ml/min/1.73 sqM); Potassium 4.7 mmol/L (3.5-5.1); Sodium 135 mmol/L (137-145)
[2024-09-24] MEDS: IV FLUID CONTINUATION 1,000 ML IV ONE ×2 (10:52)
[2024-09-24] MEDS: MIDAZOLAM 2 MG/2 ML VIAL IV ONE (11:00)
[2024-09-24] MEDS: ONDANSETRON 4 MG/2 ML VIAL IVP STA (11:06)
[2024-09-24] MEDS: FAMOTIDINE 20 MG/2 ML VIAL IV STA (11:07)
[2024-09-24] MEDS: DEXAMETHASONE SOD PHOSPHATE 4 MG/ML 1 ML VIAL IVP STA (11:08)
[2024-09-24] MEDS: LACTATED RINGERS 1,000 ML BAG IV STA (11:16)
--- NOTE | 2024-09-24 11:35 | P.ANPRN ---
Procedure Note - Anesthesia - Nerve Block Performed Right Erector Spinae Single Time Out Performed: Yes Date of Procedure: 09/24/24 Procedure Start Time: 10:59 Procedure Stop Time: 11:04 Location of Patient: PreOp Indication: Acute Post-Operative Pain, Analgesia, Requested by Surgeon Sedation Type: Sedate with meaningful contact maintained Preparation: Sterile Prep Position: Sitting Catheter: None Needle Types: Pajunk Needle Gauge: 21 Ultrasound used to visualize needle placement: Yes Ultrasound used to observe medication spread: Yes Injectate: 0.5% Ropivacaine (see comment for volume) ([id number]. Needle T7 lecel) Blood Aspirated: No Pain Paresthesia on Injection Noted: No Resistance on Injection: Normal Image Stored and Saved: Yes Events: Uneventful and Well Tolerated
--- NOTE | 2024-09-24 11:36 | P.ANPRN ---
Procedure Note - Anesthesia - Invasive Line Left Arterial Line Time Out Performed: Yes Date of Procedure: 09/24/24 Time of Procedure: 11:05 Location of Patient: PreOp Preparation: Sterile Prep Arterial Line Location: Radial Ultrasound Used: Yes Purpose - Visualization and Identification of Vasculature: Yes Image Stored and Saved: Yes Narrative: Invasive line placement per sterile protocol utilized. AttemptX1.
[2024-09-24] MEDS ORDERED: PROPOFOL 10 MG/ML 20 ML VIAL IV ONE (12:28)
[2024-09-24] MEDS ORDERED: DEXAMETHASONE SOD PHOSPHATE 10 MG/ML 1 ML VIAL ONE (12:28)
[2024-09-24] MEDS ORDERED: fentaNYL (PF) 50 MCG/ML 2 ML AMP ONE (12:28)
[2024-09-24] MEDS ORDERED: ROPIVACAINE 5 MG/ML 30 ML VIAL ONE (12:28)
[2024-09-24] MEDS ORDERED: DEXAMETHASONE SOD PHOSPHATE 4 MG/ML 1 ML VIAL ONE (12:28)
[2024-09-24] MEDS ORDERED: LIDOCAINE 1% INJ 10MG/ML (20 ML MDV) ONE (12:28)
[2024-09-24] MEDS ORDERED: MIDAZOLAM 2 MG/2 ML VIAL ONE (12:28)
[2024-09-24] MEDS ORDERED: ROCURONIUM 10 MG/ML (5 ML VIAL) IV ONE (12:28)
[2024-09-24] MEDS ORDERED: SUGAMMADEX SODIUM 200 MG/2 ML SDV IV ONE (12:28)
[2024-09-24] MEDS ORDERED: SUCCINYLCHOLINE CHLORIDE 200 MG/10 ML VIAL IV ONE (12:28)
[2024-09-24] MEDS: SODIUM CHLORIDE 0.9% 100 ML with ceFAZolin 2,000 MG IV ONE (12:32)
[2024-09-24] MEDS: BUPIVACAINE (PF) 0.5% 30 ML VIAL SQ ONE ×3 (13:08→13:55)
--- NOTE | 2024-09-24 14:31 | P.OP ---
Date of Procedure: 09/24/24 Preoperative Diagnosis: Right sided fractured ribs and retained hemothorax status post fall Postoperative Diagnosis: Same, right ruptured diaphragm Procedure(s) Performed: Right thoracoscopy, evacuation of hemothorax, repair of ruptured diaphragm Anesthesia: GETA Surgeon: Tyrel Barnett Estimated Blood Loss (ml): 10 IV fluids (ml): 1,000 Urine output (ml): 0 Pathology: other (Right pleural thrombus) Condition: stable Disposition: PACU Indications for Procedure: 64-year-old male who fell 2 weeks ago. He presents with shortness of breath and was found to have a large right pleural effusion and fractured ribs. Pigtail catheter was placed and 2 L was drained but chest x-ray demonstrated continued collection consistent with retained clot. Thoracoscopy was indicated for clearance of the pleural space. Operative Findings: There was some fibrinous material as well as small amount of bloody pleural effusion present in the chest posteriorly. Anteriorly and inferiorly there was a large amount of clotted against the diaphragm. Upon clearing this, it became evident there was a large laceration of the diaphragm anteriorly. This was successfully closed with Prolene sutures. Description of Procedure: Patient was brought to the operating room and placed supine on the operating table. General anesthesia was induced. Patient was intubated with a double- lumen endotracheal tube. In order to pass the tube, we had to pass it over the bronchoscope. It was positioned bronchoscopically and the patient was turned in the left lateral decubitus position. The right chest was sterilely prepped and draped. Initially we made 2 incisions in the right chest cavity in the anterior to mid axillary line fairly inferiorly. Video thoracoscope was introduced under single lung ventilation. A ring clamp was introduced through the second incision and the chest was explored with findings as noted above. Upon completely defining the diaphragmatic injury, it was expedient to make a third port somewhat posterior to the first 2 in order to have 2 hands for sewing the diaphragm closed. Diaphragmatic laceration was closed with [id number] [id number] Prolene sutures. On completion of the closure, the remaining thrombus within the chest was evacuated and the lung was expanded under thoracoscopic visualization. A 28 [place]yan chest tube was placed through separate stab incision and positioned posterior apically and secured with 0 Ethibond suture. Upon assuring good expansion of the lung, patient was placed back on the ventilator onto lung ventilation and the incisions were closed with layers of Vicryl suture. Skin glue and dry sterile dressings were applied, the chest tube was connected to a Pleur-evac. The patient was turned supine extubated and transferred to recovery in stable condition.
[2024-09-24] MEDS: fentaNYL (PF) 50 MCG/ML 2 ML AMP IVP PRN (14:48)
--- NOTE | 2024-09-24 15:20 | XR ---
EXAMINATION TYPE: XR chest 1V portable DATE OF EXAM: 09/24/2024 3:12 PM COMPARISON: Chest radiographs from 09/24/2024 CLINICAL INDICATION: Male, 64 years old with history of post VATS; [facility] TECHNIQUE: XR chest 1V portable Frontal view of the chest. FINDINGS: Lungs/Pleura: There is no evidence of pleural effusion, focal consolidation, or left pneumothorax. Pulmonary vascularity: Unremarkable. Heart/mediastinum: Cardiomediastinal silhouette is unremarkable. Musculoskeletal: No acute osseous pathology. Other findings: Subcutaneous emphysema scattered throughout the visualized thorax. Lines/Tubes: Right thoracotomy tube is present with trace pneumothorax. IMPRESSION: Right thoracotomy tube with trace pneumothorax.[facility], , 09/24/2024 3:18 PM
--- NOTE | 2024-09-25 03:26 | P.PN ---
Subjective Progress Note Date: 09/24/24 This is a very pleasant 64-year-old male who was recently admitted to [facility] and sent over here to [facility] for further CT evaluation for hemothorax status post fall through rafters with some rib fractures. Patient had a chest tube placed showing significant improvement on x-ray initially and repeat imaging suggestive of a loculated right-sided. CT surgery recommending VATS procedure and patient is currently n.p.o. today. Will await official surgical report. Hemoglobin is stable above 10 and will monitor closely and follow-up with repeat labs. Review of systems: Constitutional: No reports of fatigue, fever, or chills, anxious, feels somewhat frustrated Cardiovascular: No reports of chest pain, reports chest wall pain at the chest tube site Respiratory: No reports of shortness of breath or cough GI: No reports of nausea, no reports of vomiting, no diarrhea : No reports of dysuria or retention Neurovascular: No reports of generalized weakness All medications have been reviewed Active Medications PHYSICAL EXAMINATION: GENERAL: The patient is alert and oriented x4, Well developed, well nourished. HEENT: Pupils are round and equally reacting to light. EOMI. no scleral icterus. No conjunctival pallor. Normocephalic, atraumatic. No pharyngeal erythema. No thyromegaly. CARDIOVASCULAR: S1 and S2 muffled PULMONARY: diminished breath sounds on the right with no wheezing or rhonchi noted. ABDOMEN: soft. Nontender on exam. non-distended, normoactive bowel sounds. No palpable organomegaly. MUSCULOSKELETAL: No joint swelling or deformity. EXTREMITIES: No cyanosis, clubbing, or pedal edema. NEUROLOGICAL: Gross neurological examination did not reveal any focal deficits. SKIN: No rashes. Assessment: Right massive hemothorax, likely secondary to rib fractures from a fall through rafters, status post chest tube drainage Right anterolateral seventh rib fracture secondary to a fall Ascending aortic aneurysm 4 cm with ectasia of the aortic root History of hypertension History of hyperlipidemia GI prophylaxis DVT prophylaxis Full code Plan: Recommend to continue with current medications and management with CT surgery as well as pulmonary Dr. Jonathan Hood following. Patient is currently n.p.o. scheduled to undergo VATS procedure with Dr. Barnett. Diet to be resumed once cleared by surgery and will await official report Continue to encourage increased activity as tolerated Encourage incentive spirometer use at least 10 times every hour while awake Will follow-up with repeat labs and monitor hemoglobin closely. Overall prognosis is guarded at this time The impression and plan of care has been dictated by Rola Zaragoza, nurse practitioner as directed. Dr. Ravi MD I have performed a history and examination and MDM of this patient, discussed the same with the dictator, and agree with the dictator's assessment and plan as written ,documented as a scribe. Based on total visit time, I have performed more than 50% of the visit. Any additional findings or plans will be noted. Objective - Vital Signs Vital signs: Vital Signs Temp 97.9 F 09/24/24 23:10 Pulse 70 09/24/24 23:10 Resp 20 09/24/24 23:10 BP 113/69 09/24/24 23:10 Pulse Ox 98 09/24/24 23:10 FiO2 Intake & Output 09/24/24 09/24/24 09/25/24 06:59 18:59 06:59 Intake Total 1100 Output Total 2 150 750 Balance -2 950 -750 Weight 88 kg Intake: IV 1100 Output: Chest Tube Drainage 2 Right 2 Urine 750 Estimated Blood Loss 150 Other: Voiding Method Toilet Toilet Toilet # Voids 4 1 - Labs CBC & Chem 7: 09/24/24 05:18 09/24/24 05:18 Labs: Abnormal Lab Results - Last 24 Hours (Table) 09/24/24 09/24/24 Range/Units 05:18 05:18 RBC 3.90 L (4.30-5.90) m/uL Hgb 10.9 L (13.0-17.5) gm/dL Hct 33.8 L (39.0-53.0) % Sodium 135 L (137-145) mmol/L Chloride 108 H (98-107) mmol/L BUN 29 H (9-20) mg/dL Microbiology - Last 24 Hours (Table) 09/22/24 11:44 Anaerobic Culture - Preliminary Pleural Fluid 09/22/24 11:44 Gram Stain - Preliminary Pleural Fluid Body Fluid Culture - Preliminary Staphylococcus aureus 09/22/24 11:00 Gram Stain - Preliminary Pleural Fluid Body Fluid Culture - Preliminary
[2024-09-25] MEDS: PANTOPRAZOLE 40 MG TABLET PO SCH (06:17)
--- NOTE | 2024-09-25 07:20 | P.PN ---
Subjective Progress Note Date: 09/25/24 Principal diagnosis: Right-sided fractured ribs with retained hemothorax status post fall from standing, right ruptured diaphragm. History of hypertension, hyperlipidemia, osteoarthritis, lifetime non-smoker POD #3 placement of right sided pigtail catheter by interventional radiology POD #1 right thoracoscopy, evacuation of hemothorax, repair of ruptured diaphragm The patient was seen and examined sitting up in a recliner on the cardiac stepdown unit in no acute distress. States expected postsurgical pain is controlled on current medication regimen, denies shortness of breath currently. Remains in sinus rhythm, hemodynamically stable. Currently on room air with oxy gen saturation in the mid 90s, able to achieve 1500 mL on incentive spirometry. Reviewed CXR. Right pleural chest tube present to continuous wall suction, no airleak present, 250 mL serosanguineous drainage since surgery yesterday. Patient has been ambulatory in the hallway without difficulty. No other new concerns. Objective - Vital Signs Vital signs: Vital Signs Temp 97.9 F 09/24/24 23:10 Pulse 68 09/25/24 03:55 Resp 18 09/25/24 03:55 BP 134/68 09/25/24 03:55 Pulse Ox 92 L 09/25/24 03:55 FiO2 Intake & Output 09/24/24 09/25/24 09/25/24 18:59 06:59 18:59 Intake Total 1100 Output Total 150 1230 Balance 950 -1230 Weight 87.8 kg Intake: IV 1100 Output: Chest Tube Drainage 230 Right 230 Urine 1000 Estimated Blood Loss 150 Other: Voiding Method Toilet Toilet # Voids 1 - Exam CONSTITUTIONAL: Appears comfortable, cooperative, no acute distress RESPIRATORY: Lungs sounds diminished in the bases bilaterally. Respirations even, nonlabored. Currently on room air with oxygen saturation 96%. Right- sided pleural chest tube present to continuous wall suction, no airleak present, 250 mL output since surgery CARDIOVASCULAR: S1, S2 present. Regular rate and rhythm, sinus rhythm on telemetry. Palpable peripheral pulses bilaterally GASTROINTESTINAL: Abdomen soft, nontender, nondistended. Active bowel sounds present 4 quadrants. Tolerating diet GENITOURINARY: Continues to void INTEGUMENTARY: Skin is warm and dry NEUROLOGIC: Cranial nerves II through XII intact MUSKULOSKELETAL: Able to move all extremities, strength equal bilaterally, gait normal PSYCHIATRIC: Alert and oriented to person place and time, appropriate affect, intact judgment and insight - Allied health notes Allied health notes reviewed: nursing - Labs CBC & Chem 7: 09/24/24 05:18 09/24/24 05:18 Labs: Abnormal Lab Results - Last 24 Hours (Table) 09/24/24 Range/Units 05:18 Sodium 135 L (137-145) mmol/L Chloride 108 H (98-107) mmol/L BUN 29 H (9-20) mg/dL Microbiology - Last 24 Hours (Table) 09/22/24 11:44 Anaerobic Culture - Preliminary Pleural Fluid 09/22/24 11:44 Gram Stain - Preliminary Pleural Fluid Body Fluid Culture - Preliminary Staphylococcus aureus 09/22/24 11:00 Gram Stain - Preliminary Pleural Fluid Body Fluid Culture - Preliminary - Imaging and Cardiology Chest x-ray: image reviewed Assessment and Plan Assessment: Right-sided fractured ribs with retained hemothorax, ruptured right diaphragm, status post fall from standing, status post pigtail catheter placement by interventional radiology, status post right thoracoscopy, evacuation of hemothorax, repair of ruptured diaphragm Right-sided chest pain, likely secondary to above History of hypertension Hyperlipidemia Osteoarthritis Lifetime non-smoker Plan: Will place right pleural chest tube to waterseal, monitor output Pain control per current medication regimen Encourage IS, pulmonary hygiene Increase activity as tolerated Medical management of other comorbidities per internal medicine, pulmonology More recommendations to follow
[2024-09-25 07:56] LABS: HCT 36.6 % (39.0-53.0); HGB 11.6 gm/dL (13.0-17.5); Hypochromasia Slight; MCH 27.8 pg (25.0-35.0); MCHC 31.7 g/dL (31.0-37.0); MCV 87.6 fL (80.0-100.0); Mean Platelet Volume 11.1; Platelet Count 403 k/uL (150-450); RBC 4.18 m/uL (4.30-5.90); RDW 13.4 % (11.5-15.5)
--- NOTE | 2024-09-25 08:02 | XR ---
EXAMINATION TYPE: XR chest 1V portable DATE OF EXAM: 09/25/2024 5:11 AM COMPARISON: 09/24/2024 CLINICAL INDICATION: Male, 64 years old with history of post VATS, TECHNIQUE: XR chest 1V portable view(s) obtained. FINDINGS: The heart size is normal. The pulmonary vasculature is normal. Small right pleural effusion is present. Right-sided chest tube is present. Previous minimal right ap ical pneumothorax has resolved. IMPRESSION: 1. Small right pleural effusion. 2. Resolution of previous minimal right apical pneumothorax. Right-sided chest tube remains in positi on 2. [facility], , 09/25/2024 8:00 AM
[2024-09-25 08:05] LABS: African American GFR (CKD) 76 (>60 ml/min/1.73 sqM); Anion Gap 11 mmol/L; Blood Urea Nitrogen 33 mg/dL (9-20); Calcium 9.4 mg/dL (8.4-10.2); Carbon Dioxide 21 mmol/L (22-30); Chloride 106 mmol/L (98-107); Glucose 193 mg/dL (74-99); Non-African American GFR(CKD) 65 (>60 ml/min/1.73 sqM); Potassium 4.9 mmol/L (3.5-5.1); Sodium 138 mmol/L (137-145)
--- NOTE | 2024-09-25 09:37 | P.PN ---
Subjective Progress Note Date: 09/25/24 Principal diagnosis: Organized hemothorax right-sided status post pigtail catheter on September 22, s/p VATS and repair of ruptured hemidiaphragm on September 24 ruptured hemidiaphragm Right-sided chest pain related to above as well as seventh rib right displaced fracture Seventh rib right displaced fracture Status post mechanical fall and blunt trauma to the right side of the chest Dyslipidemia Essential hypertension September 25 2024, patient seen eval examined during rounds labs reviewed medications and care plan discussed, discussed with Dr. Barnett about operative intervention, status post VATS procedure and repair of right sided ruptured hemidiaphragm postop day #1 patient is awake and alert afebrile saturation 92%, hemodynamic status stable, mild shortness of breath present, patient has been doing I-S chest x-ray performed today reviewed right pleural chest tube wall suction and no leak is present 250 discharge postsurgery September 24, 2024, patient seen evaluate examined during rounds labs reviewed medications reviewed care plan discussed with the patient as well as staff at length, pain is minimal, predominantly at the chest tube incision site. Patient continue to have output in Pleur-evac. No airleak is present. So far almost 2.4 L of fluid has been collected a chest tube into Pleur-evac, currently patient has second Pleur-evac. Due to presence of loculation and adhesion patient is being planned for VATS later on today thoracic surgery September 22, 2024, cardiothoracic surgery has evaluated the patient, recommended more conservative approach with interventional radiology due to the pigtail catheter and use of Pulmozyme and alteplase for organized hemothorax. VATS procedure is currently on hold, CBC from today reviewed white cell count 7.8 hemoglobin platelet count of 234. Coags okay, BUN/creatinine 29/0.91 sodium [address] scan of the chest shows moderate to large right- sided pleural effusion with layering Hyzyd is suggestive of hemothorax, ultrasound showed small pleural effusion, noted IR is on consult for pigtail catheter placement 64-year-old non-smoker male transferred from [facility] for right-sided organized loculated pleural effusion. Patient was admitted 3 days ago at [facility] for 5-day history of right-sided pleuritic chest pain intermittent dry nonproductive cough some shortness of breath. Patient had a fall 5-day prior to presentation with blunt trauma to the chest wall. Symptoms of note that started recently prior to coming to [facility] emergency department, CT scan of the chest performed over there with IV contrast no PE seen, right-sided moderate pleural effusion seen with some evidence of early loculation. Patient was managed with pain medicine, over the weekend ultrasound not available, right-sided thoracentesis attempted but only 1 cc of bloody pleural fluid was obtained, postprocedure chest x-ray no pneumothorax seen. In addition patient also noted to have displaced seventh rib fracture right side. Patient transferred to [facility] for evaluation of thoracic surgery in relation to VATS procedure Patient examined today, pain on the right side and shortness of breath improved compared to prior exam, still have component of pleuritic chest pain, chest x- ray performed at [facility] [id number] pleural effusion. Patient has been evaluated by cardiothoracic surgery recommendations pending ultrasound of the c hest has been ordered Significant labs done white cell count 7.5, hemoglobin hematocrit 11/33 platelet count 207 chemistry significant for hyponatremia sodium 136, potassium 4.3, Objective - Vital Signs Vital signs: Vital Signs Temp 97.9 F 09/24/24 23:10 Pulse 69 09/25/24 08:00 Resp 18 09/25/24 08:00 BP 135/74 09/25/24 08:00 Pulse Ox 95 09/25/24 08:00 FiO2 Intake & Output 09/24/24 09/25/24 09/25/24 18:59 06:59 18:59 Intake Total 1100 120 Output Total 150 1230 Balance 950 -1230 120 Weight 87.8 kg Intake: IV 1100 Oral 120 Output: Chest Tube Drainage 230 Right 230 Urine 1000 Estimated Blood Loss 150 Other: Voiding Method Toilet Toilet # Voids 1 - Exam - Constitutional General appearance: average body habitus, cooperative, disheveled, mild distress - EENT Eyes: EOMI, PERRLA ENT: normal oropharynx Ears: bilateral: normal - Respiratory Respiratory: right: Proved diminished, dullness,, left-sided chest tube 20 cc serosanguineous discharge, no airleak, left: CTA - Cardiovascular Rhythm: regular Heart sounds: normal: S1, S2 - Gastrointestinal General gastrointestinal: normal bowel sounds - Integumentary Integumentary: normal turgor - Neurologic Neurologic: CNII-XII intact - Musculoskeletal Musculoskeletal: gait normal, generalized weakness, strength equal bilaterally - Psychiatric Psychiatric: A&O x's 3, appropriate affect, intact judgment & insight - Labs CBC & Chem 7: 09/25/24 07:05 09/25/24 07:05 Labs: Abnormal Lab Results - Last 24 Hours (Table) 09/24/24 09/25/24 09/25/24 Range/Units 05:18 07:05 07:05 WBC 26.0 H (3.8-10.6) k/uL RBC 4.18 L (4.30-5.90) m/uL Hgb 11.6 L (13.0-17.5) gm/dL Hct 36.6 L (39.0-53.0) % Sodium 135 L (137-145) mmol/L Chloride 108 H (98-107) mmol/L Carbon Dioxide 21 L (22-30) mmol/L BUN 29 H 33 H (9-20) mg/dL Glucose 193 H (74-99) mg/dL Microbiology - Last 24 Hours (Table) 09/22/24 11:00 Gram Stain - Preliminary Pleural Fluid Body Fluid Culture - Preliminary 09/22/24 11:44 Anaerobic Culture - Preliminary Pleural Fluid 09/22/24 11:44 Gram Stain - Preliminary Pleural Fluid Body Fluid Culture - Preliminary Staphylococcus aureus Assessment and Plan Assessment: Right-sided loculated hemothorax post VATS on September 24 Right-sided ruptured diaphragm s/p repair on September 24 Right-sided chest pain related to above as well as seventh rib right displaced fracture Seventh rib right displaced fracture Status post mechanical fall and blunt trauma to the right side of the chest Dyslipidemia Essential hypertension Plan: Patient is due assisted thorascopic procedure and s/p right diaphragm repair on September 24 Continue deep breathing/incentive spirometry Pain management with narcotic as well as nonnarcotic and lidocaine patch CT scan of the chest without contrast, reviewed as noted above Continue antihypertensive agents Norvasc Continue high intensity statins with atorvastatin ultrasound of the chest, finding reviewed Further recommendations pending plan of care as per clinical response with the patient Time with Patient: Greater than 30
[2024-09-26 07:00] LABS: Basophils % (A) 0 %; Eosinophils # (A) 0.7 k/uL (0-0.7); Eosinophils % (A) 5 %; HCT 31.4 % (39.0-53.0); Hypochromasia Slight; Lymphocytes # (A) 2.3 k/uL (1.0-4.8); Lymphocytes % (A) 19 %; MCH 27.9 pg (25.0-35.0); MCV 87.1 fL (80.0-100.0); Mean Platelet Volume 10.3; Monocytes # (A) 0.8 k/uL (0-1.0); Monocytes % (A) 6 %; Neutrophils # (A) 8.6 k/uL (1.3-7.7); Neutrophils % (A) 69 %; Platelet Count 316 k/uL (150-450); RDW 13.6 % (11.5-15.5); WBC 12.6 k/uL (3.8-10.6)
[2024-09-26 07:13] LABS: ALT 35 U/L (4-49); AST 39 U/L (17-59); African American GFR (CKD) >90 (>60 ml/min/1.73 sqM); Albumin 2.9 g/dL (3.5-5.0); Alkaline Phosphatase 62 U/L (38-126); Anion Gap 7 mmol/L; Blood Urea Nitrogen 35 mg/dL (9-20); Calcium 8.8 mg/dL (8.4-10.2); Carbon Dioxide 22 mmol/L (22-30); Chloride 110 mmol/L (98-107); Glucose 88 mg/dL (74-99); Non-African American GFR(CKD) 82 (>60 ml/min/1.73 sqM); Potassium 4.5 mmol/L (3.5-5.1); Sodium 139 mmol/L (137-145); Total Bilirubin 0.2 mg/dL (0.2-1.3); Total Protein 5.3 g/dL (6.3-8.2)
--- NOTE | 2024-09-26 07:16 | P.PN ---
Subjective Progress Note Date: 09/26/24 Principal diagnosis: Right-sided fractured ribs with retained hemothorax status post fall from standing, right ruptured diaphragm. History of hypertension, hyperlipidemia, osteoarthritis, lifetime non-smoker POD #4 placement of right sided pigtail catheter by interventional radiology POD #2 right thoracoscopy, evacuation of hemothorax, repair of ruptured diaphragm The patient was seen and examined up ambulating around the hallway on the cardiac stepdown unit in no acute distress. States expected postsurgical pain is controlled on current medication regimen, denies shortness of breath currently. Remains in sinus rhythm, hemodynamically stable. Currently on room air with oxygen saturation in the mid 90s, able to achieve 2000 mL on incentive spirometry. Reviewed CXR. Right pleural chest tube present to waterseal, no airleak present, 150 mL serosanguineous drainage in the last 24 hours. Patient has been ambulatory in the hallway without difficulty. No other new concerns. Objective - Vital Signs Vital signs: Vital Signs Temp 98.6 F 09/26/24 04:00 Pulse 56 L 09/26/24 04:00 Resp 18 09/26/24 04:00 BP 118/77 09/26/24 04:00 Pulse Ox 94 L 09/26/24 04:00 FiO2 Intake & Output 09/25/24 09/26/24 09/26/24 18:59 06:59 18:59 Intake Total 240 Output Total 92 640 Balance 148 -640 Weight 88.9 kg Intake: Oral 240 Output: Chest Tube Drainage 92 90 Right 92 90 Urine 550 Other: Voiding Method Toilet - Exam CONSTITUTIONAL: Appears comfortable, cooperative, no acute distress RESPIRATORY: Lungs sounds clear. Respirations even, nonlabored. Currently on room air with oxygen saturation 94%. Right-sided pleural chest tube present to waterseal, no airleak present, 150 mL output in the last 24 hours CARDIOVASCULAR: S1, S2 present. Regular rate and rhythm, sinus rhythm on telemetry. Palpable peripheral pulses bilaterally GASTROINTESTINAL: Abdomen soft, nontender, nondistended. Active bowel sounds present 4 quadrants. Tolerating diet GENITOURINARY: Continues to void INTEGUMENTARY: Skin is warm and dry NEUROLOGIC: Cranial nerves II through XII intact MUSKULOSKELETAL: Able to move all extremities, strength equal bilaterally, gait normal PSYCHIATRIC: Alert and oriented to person place and time, appropriate affect, intact judgment and insight - Labs CBC & Chem 7: 09/25/24 07:05 09/25/24 07:05 Labs: Abnormal Lab Results - Last 24 Hours (Table) 09/25/24 09/25/24 Range/Units 07:05 07:05 WBC 26.0 H (3.8-10.6) k/uL RBC 4.18 L (4.30-5.90) m/uL Hgb 11.6 L (13.0-17.5) gm/dL Hct 36.6 L (39.0-53.0) % Carbon Dioxide 21 L (22-30) mmol/L BUN 33 H (9-20) mg/dL Glucose 193 H (74-99) mg/dL Microbiology - Last 24 Hours (Table) 09/22/24 11:44 Gram Stain - Preliminary Pleural Fluid Body Fluid Culture - Preliminary Staphylococcus aureus 09/22/24 11:00 Anaerobic Culture - Preliminary Pleural Fluid 09/22/24 11:00 Gram Stain - Preliminary Pleural Fluid Body Fluid Culture - Preliminary - Imaging and Cardiology Chest x-ray: image reviewed Assessment and Plan Assessment: Right-sided fractured ribs with retained hemothorax, ruptured right diaphragm, status post fall from standing, status post pigtail catheter placement by interventional radiology, status post right thoracoscopy, evacuation of hemothorax, repair of ruptured diaphragm Right-sided chest pain, likely secondary to above History of hypertension Hyperlipidemia Osteoarthritis Lifetime non-smoker Plan: Right pleural chest tube discontinued without incident, patient tolerated well Will repeat chest x-ray in 2 hours, if stable patient may be discharged to home from cardiothoracic surgery standpoint Follow-up in the office next week with Dr. Barnett or Dick Patton [employer] for incision check Thoracic discharge instructions placed on discharge plan and discussed with patient Pain control per current medication regimen Encourage IS, pulmonary hygiene Increase activity as tolerated Please call us with any further questions
--- NOTE | 2024-09-26 08:04 | XR ---
EXAMINATION TYPE: XR chest 2V DATE OF EXAM: 09/26/2024 6:32 AM COMPARISON: 09/25/2024 CLINICAL INDICATION: Male, 64 years old with history of Post VATS, TECHNIQUE: XR chest 2V view(s) obtained. FINDINGS: The heart size is normal. The pulmonary vasculature is normal. Mild atelectasis may be at the right base. Right-sided chest tube is present. No pneumothorax.. IMPRESSION: 1. Mild atelectasis may be at the right lung base. 2. Right-sided chest tube. No pneumothorax. [facility], , 09/26/2024 8:01 AM
--- NOTE | 2024-09-26 09:12 | PN ---
PROGRESS NOTE DATE OF SERVICE: 09/25/2024 SUBJECTIVE: This is a 64-year-old gentleman, who was admitted with massive right hemothorax, had right thoracoscopy, evacuation of hemothorax and repair of the ruptured diaphragm also. The patient's labs, some altered bloody drainage from the chest tube drainage. The chest x-ray showed some improvement, atelectasis also noted. PAST MEDICAL HISTORY: Reviewed. REVIEW OF SYSTEMS: Fourteen-point review of systems is negative except as mentioned earlier. CURRENT MEDICATIONS: Reviewed include Norvasc. Dose and rest of medications noted. PHYSICAL EXAMINATION: VITAL SIGNS: Pulse is 71, blood pressure 120/70, respirations 16. CHEST: A few scattered rhonchi and crackles. ABDOMEN: Soft. NERVOUS SYSTEM: Nonfocal. LABORATORY DATA: WBC 26, rest of the labs are noted. ASSESSMENT: 1. Right massive hemothorax likely secondary to rib fractures from a fall. 2. Right diaphragmatic rupture and repair. 3. Right anterolateral seventh rib fracture. 4. Ascending aortic aneurysm 4 cm with ectasia. 5. Hypertension. 6. Hyperlipidemia. 7. Multiple complex medical issues. 8. Elevated WBC. RECOMMENDATIONS AND DISCUSSION: This is a 64-year-old gentleman presented with multiple complex medical issues, we will monitor the patient closely. Continue the current medications, continue symptomatic treatment. I would also recommend obtain the cultures and also get an evaluation with Infectious Disease also. The elevated WBC could be due to steroids, but however, we will be cautious because of the finding of diaphragmatic rupture. Prognosis extremely guarded. Further recommendations to follow. MMODL / IJN: [id number] /
--- NOTE | 2024-09-26 09:16 | XR ---
EXAMINATION TYPE: XR chest 2V DATE OF EXAM: 09/26/2024 9:10 AM COMPARISON: 09/26/2024 CLINICAL INDICATION: Male, 64 years old with history of post chest tube removal, TECHNIQUE: XR chest 2V view(s) obtained. FINDINGS: The heart size is normal. The pulmonary vasculature is normal. Mild right lower lobe infiltrate remains present.. Chest tube has been removed. No pneumothorax is e vident. IMPRESSION: 1. Stable mild right lower lobe infiltrate. [facility], , 09/26/2024 9:14 AM
[2024-09-26] MEDS: IPRATROPIUM-ALBUTEROL 3 ML NEB INHALATION SCH (15:59)
[2024-09-26] MEDS: MULTIVITAMINS, THERA 1 EACH TAB PO SCH (16:46)
--- NOTE | 2024-09-27 07:25 | P.CONS ---
History of Present Illness - Reason for Consult Consult date: 09/26/24 High WBC Requesting physician: Drew Rodrigues - Chief Complaint Right-sided chest pain x days - History of Present Illness Patient is a 64-year-old male with a past medical history significant for hypertension hyperlipidemia osteoarthritis, apparently the patient did have a fall from standing position on September 11, 2024 and has led to fracture of seventh rib patient initially presented to [facility] on September 11 and was discharged home presenting back to the hospital on September 17, 2024 with right-sided chest pain shortness of breath he did have a CT of the chest we did shows seventh rib fracture right-sided pleural effusion subsequently patient has been transferred to [facility] to be evaluated by CT surgery patient did have right thoracoscopy evacuation of hemothorax and repair of the ruptured diaphragm procedure completed on 09/24/2024 patient has been afebrile during this hospital stay he did have a normal white count initially however the patient white count up to 26,000 on 09/25/2024 that has prompted this consultation patient pleural fluid was mostly bloody the cultures obtained did grew MSSA and the patient was started on cefazolin pending evaluation this morning, patient afebrile elevation denies having any fever or any chills has been complaining of pain to right side of the chest mostly sharp moderate intens ity has decreased in intensity since presenting to the hospital without any radiation denies any nausea no vomiting no abdominal pain and no diarrhea no urinary symptoms Review of Systems Positive point and negatives has been mentioned in the HPI, complete review of systems was performed and all other systems are negative Past Medical History Past Medical History: Hyperlipidemia, Hypertension, Osteoarthritis (OA) Additional Past Medical History / Comment(s): Irritable bowel syndrome History of Any Multi-Drug Resistant Organisms: None Reported Past Surgical History: Appendectomy, Hernia Repair, Tonsillectomy Additional Past Surgical History / Comment(s): COLONOSCOPY. LT shoulder surgeries X 4. RT shoulder surgery. Left hip replacement Past Anesthesia/Blood Transfusion Reactions: No Reported Reaction Past Psychological History: No Psychological Hx Reported Smoking Status: Never smoker Past Alcohol Use History: None Reported Past Drug Use History: None Reported - Past Family History Mother Family Medical History: Cancer (Skin), Hypertension Additional Family Medical History / Comment(s): GI problems Father Family Medical History: Hypertension Additional Family Medical History / Comment(s): Still living and is 90 Medications and Allergies Home Medications Medication Instructions Recorded Confirmed Type Simvastatin [Zocor] 20 mg PO HS 02/07/16 09/20/24 History amLODIPine [Norvasc] 5 mg PO DAILY 09/20/24 09/20/24 History Allergies Allergy/AdvReac Type Severity Reaction Status Date / Time bee venom protein (honey bee) Allergy Anaphylaxis Verified 09/20/24 19:31 hydromorphone [From Dilaudid] AdvReac Intermediate Nausea & Verified 09/20/24 17:31 Vomiting Physical Exam Vitals: Vital Signs Temp Pulse Resp BP BP Pulse Ox 09/26/24 08:00 65 18 128/67 97 09/26/24 04:00 98.6 F 56 L 18 118/77 94 L 09/26/24 01:17 59 L 18 09/26/24 00:00 98.6 F 59 L 18 121/71 95 09/25/24 20:00 97.8 F 63 18 130/77 96 09/25/24 16:00 77 18 133/71 97 09/25/24 13:11 16 Intake and Output 09/25/24 09/26/24 09/26/24 22:59 06:59 14:59 Intake Total 120 Output Total 200 440 Balance -80 -440 Intake: Oral 120 Output: Chest Tube Drainage 0 90 Right 0 90 Urine 200 350 Other: Voiding Method Toilet Toilet Weight 88.9 kg GENERAL DESCRIPTION: Middle-aged male up in the chair, no distress. No tachypnea or accessory muscle of respiration use. HEENT: Shows Pallor , no scleral icterus. Oral mucous membrane is dry. No pharyngeal erythema or thrush NECK: Trachea central, no thyromegaly. LUNGS: Unlabored breathing. Decreased breath sound at the base HEART: S1, S2, regular rate and rhythm. No loud murmur ABDOMEN: Soft, no tenderness , guarding or rigidity, no organomegaly EXTREMITIES: No edema of feet. SKIN: No rash, no masses palpable. NEUROLOGICAL: The patient is awake, alert, oriented x3, mood and affect normal. Results CBC & Chem 7: 09/26/24 06:12 09/26/24 06:12 Labs: Abnormal Lab Results - Last 24 Hours (Table) 09/26/24 09/26/24 Range/Units 06:12 06:12 WBC 12.6 H (3.8-10.6) k/uL RBC 3.60 L (4.30-5.90) m/uL Hgb 10.0 L D (13.0-17.5) gm/dL Hct 31.4 L (39.0-53.0) % Neutrophils # 8.6 H (1.3-7.7) k/uL Chloride 110 H (98-107) mmol/L BUN 35 H (9-20) mg/dL Total Protein 5.3 L (6.3-8.2) g/dL Albumin 2.9 L (3.5-5.0) g/dL Microbiology - Last 24 Hours (Table) 09/22/24 11:00 Gram Stain - Preliminary Pleural Fluid Body Fluid Culture - Preliminary 09/22/24 11:44 Gram Stain - Preliminary Pleural Fluid Body Fluid Culture - Preliminary Staphylococcus aureus 09/22/24 11:00 Anaerobic Culture - Preliminary Pleural Fluid Assessment and Plan (1) Empyema lung Current Visit: Yes Status: Acute Code(s): J86.9 - PYOTHORAX WITHOUT FISTULA SNOMED Code(s): 98006333 (2) MSSA (methicillin susceptible Staphylococcus aureus) infection Current Visit: Yes Status: Acute Code(s): A49.01 - METHICILLIN SUSCEP STAPH INFECTION, UNSP SITE SNOMED Code(s): 836325318 (3) Leukocytosis Current Visit: Yes Status: Acute Code(s): D72.829 - ELEVATED WHITE BLOOD CELL COUNT, UNSPECIFIED SNOMED Code(s): 346548530 Plan: 1patient presented hospital with right-sided chest pain in this patient who did have a fall with 7 rib fracture, with evidence of significant right-sided effusion in this patient who is s/p thoracoscopy drainage of infected hematoma and repair of the ruptured diaphragm did have elevated white count with a culture now showing MSSA concerning for infected hematoma/empyema. 2patient has been started on cefazolin 2 g every 8 hours patient benefit from a short course of IV cefazolin on discharge. Midline will be placed this has been discussed in detail with the patient as well as with admitting physician multiple question concern answered. We will follow on clinical condition and cultures to further adjust medication if needed Thank you for this consultation we will follow the patient along with you Dictation was produced using dragon dictation software. please excuse any grammatical, word or spelling errors. Time with Patient: Greater than 30
--- NOTE | 2024-09-27 07:51 | PN ---
PROGRESS NOTE DATE OF SERVICE: 09/26/2024 SUBJECTIVE: This 64-year-old gentleman, who was admitted with right massive hemothorax, had diaphragmatic rupture and repair also. The patient's emesis grown from the culture indicating possibly early empyema. The most recent chest x-ray was reviewed, showed some atelectasis. PAST MEDICAL HISTORY: Reviewed. REVIEW OF SYSTEMS: 14-point review is negative except as mentioned earlier. CURRENT MEDICATIONS: Reviewed, which include cefazolin. PHYSICAL EXAM: VITAL SIGNS: Pulse is 65, blood pressure 120/60, respirations 18. HEENT: Conjunctivae normal. NECK: No JVD. CARDIOVASCULAR: S1 and S2. RESPIRATIONS: Breath sounds diminished at the bases. ABDOMEN: Soft. NERVOUS SYSTEM: Nonfocal. LABORATORY DATA: n ASSESSMENT: 1. Right massive hemothorax secondary to rib fracture and fall with possible early empyema. 2. Methicillin-susceptible Staphylococcus aureus from the fluid culture. 3. Right diaphragmatic rupture and repair. 4. Right anterolateral 7th rib fracture. 5. Ascending aortic aneurysm 4 cm. 6. Hypertension. 7. Hyperlipidemia. 8. Elevated WBC. 9. Multiple complex medical issues. RECOMMENDATIONS AND DISCUSSION: Recommend to continue current management. Recommend repeat labs. Continue the antibiotics and discussed with Dr. Castillo. Recommended possible PICC line and outpatient IV antibiotics at least for 2 weeks. I would also recommend CT abdomen and pelvis to complete the workup also. Prognosis guarded. Further recommendations to follow. SUKUMAR / EDMOND: [id number] / MTDD
[2024-09-27 08:46] LABS: ALT 38 U/L (10-49); AST 26 U/L (14-35); Albumin 3.2 g/dL (3.8-4.9); Alkaline Phosphatase 62 U/L (41-126); BUN/Creat Ratio 24.78 Ratio (12.00-20.00); Blood Urea Nitrogen 22.3 mg/dL (9.0-27.0); Calcium 8.8 mg/dL (8.7-10.3); Carbon Dioxide 21.1 mmol/L (21.6-31.8); Chloride 109 mmol/L (96-109); Glucose 95 mg/dL (70-110); Potassium 4.7 mmol/L (3.5-5.5); Sodium 140 mmol/L (135-145); Total Bilirubin <0.2 mg/dL (0.3-1.2); Total Protein 5.2 g/dL (6.2-8.2)
[2024-09-27 08:48] LABS: Basophils # (A) 0.07 X 10*3/uL (0.00-0.10); Basophils % (A) 0.6 %; Eosinophils # (A) 0.91 X 10*3/uL (0.04-0.35); HCT 31.6 % (39.6-50.0); HGB 9.8 g/dL (13.0-17.0); Lymphocytes # (A) 2.12 X 10*3/uL (0.90-5.00); Lymphocytes % (A) 18.7 %; MCH 27.1 pg (27.0-32.0); MCV 87.3 FL (80.0-97.0); Mean Platelet Volume 12.3 FL (9.5-12.2); Monocytes # (A) 1.01 X 10*3/uL (0.20-1.00); Monocytes % (A) 8.9 %; NRBC Per 100 WBC 0 X 10*3/uL (0.00-0.01); Neutrophils # (A) 7.11 X 10*3/uL (1.80-7.70); Neutrophils % (A) 62.7 %; Platelet Count 343 X 10*3/uL (140-440); RBC 3.62 X 10*6/uL (4.40-5.60); RDW 14.3 % (11.5-14.5); WBC 11.35 X 10*3/uL (4.50-10.00)
[2024-09-27 10:01] VITALS: BMI 29.1
--- NOTE | 2024-09-27 10:49 | P.PN ---
Subjective Progress Note Date: 09/26/24 Principal diagnosis: Organized hemothorax right-sided status post pigtail catheter on September 22, s/p VATS and repair of ruptured hemidiaphragm on September 24 ruptured hemidiaphragm Right-sided chest pain related to above as well as seventh rib right displaced fracture Seventh rib right displaced fracture Status post mechanical fall and blunt trauma to the right side of the chest Dyslipidemia Essential hypertension September 26, 2024 patient seen evaluate examined during rounds labs reviewed medications reviewed, patient is ambulating in the hallway deep breathing e xercises incentive spirometry is in progress can do up to 2 L, remains afebrile hemodynamic stable saturation 94% is continued on high intensity statins along with antihypertensive agent. Patient has been getting Lovenox for DVT prophylaxis. Labs done today reviewed WBC count improved to 12.6, hemoglobin hematocrit 09/09 platelet count of 316, chemistry remains stable BUN/creatinine 35/0.98 improved, pleural fluid cytology for malignancy body fluid culture came back positive for Staph aureusMSSA patient has been on high-dose cefazolin, chest tube has been removed September 25 2024, patient seen eval examined during rounds labs reviewed medications and care plan discussed, discussed with Dr. Barnett about operative intervention, status post VATS procedure and repair of right sided ruptured hemidiaphragm postop day #1 patient is awake and alert afebrile saturation 92%, hemodynamic status stable, mild shortness of breath present, patient has been doing I-S chest x-ray performed today reviewed right pleural chest tube wall suction and no leak is present 250 discharge postsurgery September 24, 2024, patient seen evaluate examined during rounds labs reviewed medications reviewed care plan discussed with the patient as well as staff at length, pain is minimal, predominantly at the chest tube incision site. Patient continue to have output in Pleur-evac. No airleak is present. So far almost 2.4 L of fluid has been collected a chest tube into Pleur-evac, currently patient has second Pleur-evac. Due to presence of loculation and adhesion patient is being planned for VATS later on today thoracic surgery September 22, 2024, cardiothoracic surgery has evaluated the patient, recommended more conservative approach with interventional radiology due to the pigtail catheter and use of Pulmozyme and alteplase for organized hemothorax. VATS procedure is currently on hold, CBC from today reviewed white cell count 7.8 hemoglobin 11/34 platelet count of 234. Coags okay, BUN/creatinine 29/0.91 sodium [address] scan of the chest shows moderate to large right- sided pleural effusion with layering Hyzyd is suggestive of hemothorax, ultrasound showed small pleural effusion, noted IR is on consult for pigtail catheter placement 64-year-old non-smoker male transferred from [facility] for right-sided organized loculated pleural effusion. Patient was admitted 3 days ago at [facility] for 5-day history of right-sided pleuritic chest pain intermittent dry nonproductive cough some shortness of breath. Patient had a fall 5-day prior to presentation with blunt trauma to the chest wall. Symptoms of note that started recently prior to coming to [facility] emergency department, CT scan of the chest performed over there with IV contrast no PE seen, right-sided moderate pleural effusion seen with some evidence of early loculation. Patient was managed with pain medicine, over the weekend ultrasound not available, right-sided thoracentesis attempted but only 1 cc of bloody pleural fluid was obtained, postprocedure chest x-ray no pneumothorax seen. In addition patient also noted to have displaced seventh rib fracture right side. Patient transferred to [facility] for evaluation of thoracic surgery in relation to VATS procedure Patient examined today, pain on the right side and shortness of breath improved compared to prior exam, still have component of pleuritic chest pain, chest x- ray performed at [facility] [id number] pleural effusion. Patient has been evaluated by cardiothoracic surgery recommendations pending ultrasound of the chest has been ordered Significant labs done white cell count 7.5, hemoglobin hematocrit 11/33 platelet count 207 chemistry significant for hyponatremia sodium 136, potassium 4.3, Objective - Vital Signs Vital signs: Vital Signs Temp 98.6 F 09/26/24 04:00 Pulse 65 09/26/24 08:00 Resp 18 09/26/24 08:00 BP 128/67 09/26/24 08:00 Pulse Ox 97 09/26/24 08:00 FiO2 Intake & Output 09/25/24 09/26/24 09/26/24 18:59 06:59 18:59 Intake Total 240 Output Total 92 640 Balance 148 -640 Weight 88.9 kg Intake: Oral 240 Output: Chest Tube Drainage 92 90 Right 92 90 Urine 550 Other: Voiding Method Toilet - Exam - Constitutional General appearance: average body habitus, cooperative, disheveled, mild distress - EENT Eyes: EOMI, PERRLA ENT: normal oropharynx Ears: bilateral: normal - Respiratory Respiratory: right: Proved diminished, dullness,, left-sided chest tube 20 cc serosanguineous discharge, no airleak, left: CTA - Cardiovascular Rhythm: regular Heart sounds: normal: S1, S2 - Gastrointestinal General gastrointestinal: normal bowel sounds - Integumentary Integumentary: normal turgor - Neurologic Neurologic: CNII-XII intact - Musculoskeletal Musculoskeletal: gait normal, generalized weakness, strength equal bilaterally - Psychiatric Psychiatric: A&O x's 3, appropriate affect, intact judgment & insight - Labs CBC & Chem 7: 09/27/24 03:51 09/27/24 03:51 Labs: Abnormal Lab Results - Last 24 Hours (Table) 09/26/24 09/26/24 Range/Units 06:12 06:12 WBC 12.6 H (3.8-10.6) k/uL RBC 3.60 L (4.30-5.90) m/uL Hgb 10.0 L D (13.0-17.5) gm/dL Hct 31.4 L (39.0-53.0) % Neutrophils # 8.6 H (1.3-7.7) k/uL Chloride 110 H (98-107) mmol/L BUN 35 H (9-20) mg/dL Total Protein 5.3 L (6.3-8.2) g/dL Albumin 2.9 L (3.5-5.0) g/dL Microbiology - Last 24 Hours (Table) 09/22/24 11:00 Gram Stain - Preliminary Pleural Fluid Body Fluid Culture - Preliminary 09/22/24 11:44 Gram Stain - Preliminary Pleural Fluid Body Fluid Culture - Preliminary Staphylococcus aureus 09/22/24 11:00 Anaerobic Culture - Preliminary Pleural Fluid Assessment and Plan Assessment: Right-sided loculated hemothorax post VATS on September 24 chest tube has been removed for September 26 Right-sided ruptured diaphragm s/p repair on September 24 MSSA empyema status post VATS on IV cefazolin Right-sided chest pain related to above as well as seventh rib right displaced fracture Seventh rib right displaced fracture Status post mechanical fall and blunt trauma to the right side of the chest Dyslipidemia Essential hypertension Plan: Cytology has been negative, pleural fluid however came back positive for MSSA on IV cefazolin recommend ID evaluation for duration of antibiotics Patient is due assisted thorascopic procedure and s/p right diaphragm repair on September 24 Continue deep breathing/incentive spirometry Pain management with narcotic as well as nonnarcotic and lidocaine patch CT scan of the chest without contrast, reviewed as noted above Continue antihypertensive agents Norvasc Continue high intensity statins with atorvastatin ultrasound of the chest, finding reviewed Further recommendations pending plan of care as per clinical response with the patient Time with Patient: Greater than 30
--- NOTE | 2024-09-27 10:52 | P.PN ---
Subjective Progress Note Date: 09/27/24 Principal diagnosis: Organized hemothorax right-sided status post pigtail catheter on September 22, s/p VATS and repair of ruptured hemidiaphragm on September 24 ruptured hemidiaphragm Right-sided chest pain related to above as well as seventh rib right displaced fracture Seventh rib right displaced fracture Status post mechanical fall and blunt trauma to the right side of the chest Dyslipidemia Essential hypertension September 27, 2024, patient seen eval examined during rounds labs reviewed medications reviewed, chest tube has been removed, his chest x-ray post removal of chest tube stable right lower lobe infiltrate remains on IV cefazolin tolerating very well, patient underwent a PICC line plan is for long-term antibiotics as per recommended by infectious disease services September 26, 2024 patient seen evaluate examined during rounds labs reviewed medications reviewed, patient is ambulating in the hallway deep breathing exercises incentive spirometry is in progress can do up to 2 L, remains afebrile hemodynamic stable saturation 94% is continued on high intensity statins along with antihypertensive agent. Patient has been getting Lovenox for DVT prophy laxis. Labs done today reviewed WBC count improved to 12.6, hemoglobin hematocrit 09/09 platelet count of 316, chemistry remains stable BUN/creatinine 35/0.98 improved, pleural fluid cytology for malignancy body fluid culture came back positive for Staph aureusMSSA patient has been on high-dose cefazolin, chest tube has been removed September 25 2024, patient seen eval examined during rounds labs reviewed medications and care plan discussed, discussed with Dr. Barnett about operative intervention, status post VATS procedure and repair of right sided ruptured hemidiaphragm postop day #1 patient is awake and alert afebrile saturation 92%, hemodynamic status stable, mild shortness of breath present, patient has been doing I-S chest x-ray performed today reviewed right pleural chest tube wall suction and no leak is present 250 discharge postsurgery September 24, 2024, patient seen evaluate examined during rounds labs reviewed medications reviewed care plan discussed with the patient as well as staff at length, pain is minimal, predominantly at the chest tube incision site. Patient continue to have output in Pleur-evac. No airleak is present. So far almost 2.4 L of fluid has been collected a chest tube into Pleur-evac, currently patient has second Pleur-evac. Due to presence of loculation and adhesion patient is being planned for VATS later on today thoracic surgery September 22, 2024, cardiothoracic surgery has evaluated the patient, recommended more conservative approach with interventional radiology due to the pigtail catheter and use of Pulmozyme and alteplase for organized hemothorax. VATS procedure is currently on hold, CBC from today reviewed white cell count 7.8 hemoglobin platelet count of 234. Coags okay, BUN/creatinine 29/0.91 sod ium [address] scan of the chest shows moderate to large right-sided pleural effusion with layering Hyzyd is suggestive of hemothorax, ultrasound showed small pleural effusion, noted IR is on consult for pigtail catheter placement 64-year-old non-smoker male transferred from [facility] for right-sided organized loculated pleural effusion. Patient was admitted 3 days ago at [facility] for 5-day history of right-sided pleuritic chest pain intermittent dry nonproductive cough some shortness of breath. Patient had a fall 5-day prior to presentation with blunt trauma to the chest wall. Symptoms of note that started recently prior to coming to [facility] emergency department, CT scan of the chest performed over there with IV contrast no PE seen, right-sided moderate pleural effusion seen with some evidence of early loculation. Patient was managed with pain medicine, over the weekend ultrasound not available, right-sided thoracentesis attempted but only 1 cc of bloody pleural fluid was obtained, postprocedure chest x-ray no pneumothorax seen. In addition patient also noted to have displaced seventh rib fracture right side. Patient transferred to [facility] for evaluation of thoracic surgery in relation to VATS procedure Patient examined today, pain on the right side and shortness of breath improved compared to prior exam, still have component of pleuritic chest pain, chest x- ray performed at [facility] [id number] pleural effusion. Patient has been evaluated by cardiothoracic surgery recommendations pending ultrasound of the chest has been ordered Significant labs done white cell count 7.5, hemoglobin hematocrit /33 platelet count 207 chemistry significant for hyponatremia sodium 136, potassium 4.3, Objective - Vital Signs Vital signs: Vital Signs Temp 98.6 F 09/27/24 07:23 Pulse 70 09/27/24 09:29 Resp 16 09/27/24 07:23 BP 135/74 09/27/24 07:23 Pulse Ox 97 09/27/24 07:23 FiO2 Intake & Output 09/26/24 09/27/24 09/27/24 18:59 06:59 18:59 Intake Total 713 Balance 713 Weight 89.5 kg 89.5 kg Intake: Oral 713 Other: Voiding Method Toilet - Exam - Constitutional General appearance: average body habitus, cooperative, disheveled, mild distress - EENT Eyes: EOMI, PERRLA ENT: normal oropharynx Ears: bilateral: normal - Respiratory Respiratory: right: Proved diminished, dullness,, left-sided chest tube 20 cc serosanguineous discharge, no airleak, left: CTA - Cardiovascular Rhythm: regular Heart sounds: normal: S1, S2 - Gastrointestinal General gastrointestinal: normal bowel sounds - Integumentary Integumentary: normal turgor - Neurologic Neurologic: CNII-XII intact - Musculoskeletal Musculoskeletal: gait normal, generalized weakness, strength equal bilaterally - Psychiatric Psychiatric: A&O x's 3, appropriate affect, intact judgment & insight - Labs CBC & Chem 7: 09/27/24 03:51 09/27/24 03:51 Labs: Abnormal Lab Results - Last 24 Hours (Table) 09/27/24 09/27/24 Range/Units 03:51 03:51 WBC 11.35 H (4.50-10.00) X 10*3/uL RBC 3.62 L (4.40-5.60) X 10*6/uL Hgb 9.8 L (13.0-17.0) g/dL Hct 31.6 L (39.6-50.0) % MCHC 31.0 L (32.0-37.0) g/dL MPV 12.3 H (9.5-12.2) FL Immature Gran # 0.13 H (0.00-0.04) X 10*3/uL Monocytes # 1.01 H (0.20-1.00) X 10*3/uL Eosinophils # 0.91 H (0.04-0.35) X 10*3/uL Carbon Dioxide 21.1 L (21.6-31.8) mmol/L BUN/Creatinine Ratio 24.78 H (12.00-20.00) Ratio Total Bilirubin <0.2 L (0.3-1.2) mg/dL Total Protein 5.2 L (6.2-8.2) g/dL Albumin 3.2 L (3.8-4.9) g/dL Microbiology - Last 24 Hours (Table) 09/22/24 11:00 Gram Stain - Final Pleural Fluid Body Fluid Culture - Final 09/25/24 16:52 Blood Culture - Preliminary Blood 09/22/24 11:44 Gram Stain - Final Pleural Fluid Body Fluid Culture - Final Staphylococcus aureus 09/22/24 11:44 Anaerobic Culture - Final Pleural Fluid Assessment and Plan Assessment: Right-sided loculated hemothorax post VATS on September 24 chest tube has been removed for September 26 Right-sided ruptured diaphragm s/p repair on September 24 MSSA empyema status post VATS on IV cefazolin Right-sided chest pain related to above as well as seventh rib right displaced fracture Seventh rib right displaced fracture Status post mechanical fall and blunt trauma to the right side of the chest Dyslipidemia Essential hypertension Plan: Cytology has been negative, pleural fluid however came back positive for MSSA on IV cefazolin r patient is status post PICC line placement likely will be discharged later on today for long-term antibiotic Patient is due assisted thorascopic procedure and s/p right diaphragm repair on September 24 Continue deep breathing/incentive spirometry Pain management with narcotic as well as nonnarcotic and lidocaine patch CT scan of the chest without contrast, reviewed as noted above Continue antihypertensive agents Norvasc Continue high intensity statins with atorvastatin ultrasound of the chest, finding reviewed Further recommendations pending plan of care as per clinical response with the patient Follow-up as outpatient may need bronchoscopy as outpatient once stabilized Time with Patient: Greater than 30
--- NOTE | 2024-09-27 12:09 | P.PN ---
Subjective Progress Note Date: 09/27/24 Principal diagnosis: Reason for follow-up is right sided infected hematoma/empyema Patient is a 64-year-old male with a past medical history significant for hypertension hyperlipidemia osteoarthritis, apparently the patient did have a fall from standing position on September 11, 2024 and has led to fracture of seventh rib patient initially presented to [facility] patient noted to have a large right-sided effusion for the patient was transferred for [facility] patient is status post right thoracoscopy evacuation of hemothorax and repair of the ruptured diaphragm pleural fluid culture grew MSSA did have elevated white count prompted this consultation. On today's evaluation that is 09/27/2024,the patient remains to be afebrile, patient is on room air not requiring supplemental oxygen and denies any shortness of breath at the patient right-sided chest pain has decreased in intensity denies significant cough.Patient denies having any nausea or vomiting, no abdominal pain and no diarrhea has been reported. Patient white count is 11.35, creatinine 0.9 anaerobe culture negative blood culture negative Objective - Vital Signs Vital signs: Vital Signs Temp 98.6 F 09/27/24 07:23 Pulse 70 09/27/24 09:29 Resp 16 09/27/24 07:23 BP 135/74 09/27/24 07:23 Pulse Ox 97 09/27/24 07:23 FiO2 Intake & Output 09/26/24 09/27/24 09/27/24 18:59 06:59 18:59 Intake Total 713 Balance 713 Weight 89.5 kg 89.5 kg Intake: Oral 713 Other: Voiding Method Toilet - Exam GENERAL DESCRIPTION: Middle-age male up in the chair in no distress RESPIRATORY SYSTEM: Unlabored breathing , decreased breath sounds at bases HEART: S1 S2 regular rate and rhythm , ABDOMEN: Soft , no tenderness EXTREMITIES: No edema feet - Labs CBC & Chem 7: 09/27/24 03:51 09/27/24 03:51 Labs: Abnormal Lab Results - Last 24 Hours (Table) 09/27/24 09/27/24 Range/Units 03:51 03:51 WBC 11.35 H (4.50-10.00) X 10*3/uL RBC 3.62 L (4.40-5.60) X 10*6/uL Hgb 9.8 L (13.0-17.0) g/dL Hct 31.6 L (39.6-50.0) % MCHC 31.0 L (32.0-37.0) g/dL MPV 12.3 H (9.5-12.2) FL Immature Gran # 0.13 H (0.00-0.04) X 10*3/uL Monocytes # 1.01 H (0.20-1.00) X 10*3/uL Eosinophils # 0.91 H (0.04-0.35) X 10*3/uL Carbon Dioxide 21.1 L (21.6-31.8) mmol/L BUN/Creatinine Ratio 24.78 H (12.00-20.00) Ratio Total Bilirubin <0.2 L (0.3-1.2) mg/dL Total Protein 5.2 L (6.2-8.2) g/dL Albumin 3.2 L (3.8-4.9) g/dL Microbiology - Last 24 Hours (Table) 09/22/24 11:00 Gram Stain - Final Pleural Fluid Body Fluid Culture - Final 09/25/24 16:52 Blood Culture - Preliminary Blood 09/22/24 11:44 Gram Stain - Final Pleural Fluid Body Fluid Culture - Final Staphylococcus aureus 09/22/24 11:44 Anaerobic Culture - Final Pleural Fluid Assessment and Plan (1) Empyema lung Current Visit: Yes Status: Acute Code(s): J86.9 - PYOTHORAX WITHOUT FISTULA SNOMED Code(s): 33227341 (2) MSSA (methicillin susceptible Staphylococcus aureus) infection Current Visit: Yes Status: Acute Code(s): A49.01 - METHICILLIN SUSCEP STAPH INFECTION, UNSP SITE SNOMED Code(s): 913151771 (3) Leukocytosis Current Visit: Yes Status: Acute Code(s): D72.829 - ELEVATED WHITE BLOOD CELL COUNT, UNSPECIFIED SNOMED Code(s): 557446714 Plan: 1patient presented hospital with right-sided chest pain in this patient who did have a fall with 7 rib fracture, with evidence of significant right-sided effusion in this patient who is s/p thoracoscopy drainage of infected hematoma and repair of the ruptured diaphragm did have elevated white count with a cultu re now showing MSSA concerning for infected hematoma/empyema. 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 please excuse any grammatical, word or spelling errors. Time with Patient: Less than 30
[2024-09-27] MEDS: IOPAMIDOL CONTRAST (ORAL USE) VIAL PO PRN (15:24)
--- NOTE | 2024-09-27 17:25 | CT ---
EXAMINATION TYPE: CT abdomen pelvis wo con DATE OF EXAM: 09/27/2024 5:13 PM COMPARISON: None. CLINICAL INDICATION: Male, 64 years old with history of Recent diaphragm rupture, abd pain/ diaphragm rupture TECHNIQUE: Axial images with sagittal coronal reformats. Examination of the solid and hollow viscera is limited given the lack of contrast. CT DLP: 723.5 mGycm, Automated exposure control for dose reduction was used. FINDINGS: LUNG BASES: Right basilar effusion is diminished in size. Basilar linear atelectasis. Subcutaneous ai r along the right chest wall. LIVER/GB: The gallbladder is unremarkable. No space-occupying hepatic lesion. PANCREAS: No pancreatic mass identified. No inflammatory process seen. SPLEEN: No evidence for splenomegaly. No intrasplenic lesions seen. ADRENALS: No adrenal nodules identified. No evidence for thickening. KIDNEYS: Hypoattenuating renal lesions likely reflect cysts. Nonobstructing nephrolithiasis bilateral ly. No hydronephrosis. BOWEL: Appendix has a normal appearance. No evidence of bowel obstruction. No inflammatory process. Lymph nodes: No evidence for adenopathy greater than 1 cm. Abdominal aorta: Atheromatous changes seen. There are 3.5 cm infrarenal abdominal aortic aneurysm. Genital organs: No significant abnormality. Other: Fat-containing right inguinal hernia. IMPRESSION: 1. No acute intra-abdominal process seen. 2. Right basilar effusion is diminished in size. Basilar linear atelectasis. Subcutaneous air along the right chest wall. 3. Infrarenal abdominal aortic aneurysm [facility] Helen José, , 09/27/2024 5:23 PM
--- NOTE | 2024-09-27 22:30 | P.PN ---
Subjective Progress Note Date: 09/27/24 This is a very pleasant 64-year-old male who was recently admitted to [facility] and sent over here to [facility] for further CT evaluation for hemothorax status post fall through rafters with some rib fractures. Patient had a chest tube placed showing significant improvement on x-ray initially and repeat imaging suggestive of a loculated right-sided. CT surgery recommending VATS procedure and patient is currently n.p.o. today. Will await official surgical report. Hemoglobin is stable above 10 and will monitor closely and follow-up with repeat labs. 09/27/2024 Patient is seen in follow-up followed by pulmonary along with infectious disease and CT surgery. Patient is status post VATS procedure and did have a mildly elevated white count concerning for possible empyema. Cultures showing MSSA and maintained on antibiotics and will continue a 2-week course of cefazolin on discharge. Patient to receive a midline/PICC line for discharge and case management following awaiting finalized arrangements regarding outpatient IV antibiotic therapy and home care. Patient is afebrile denies any shortness of breath but is extremely anxious to go home. Recommend repeat CT abdomen pelvis for evaluation. White count is trending down and patient remains afebrile. Review of systems: Constitutional: No reports of fatigue, fever, or chills, feels somewhat frustrated and wants to go home Cardiovascular: No reports of chest pain, or palpitations Respiratory: No reports of shortness of breath or cough GI: No reports of nausea, no reports of vomiting, no diarrhea : No reports of dysuria or retention Neurovascular: No reports of generalized weakness All medications have been reviewed PHYSICAL EXAMINATION: GENERAL: The patient is alert and oriented x4, Well developed, well nourished. HEENT: Pupils are round and equally reacting to light. EOMI. no scleral icterus. No conjunctival pallor. Normocephalic, atraumatic. No pharyngeal erythema. No thyromegaly. CARDIOVASCULAR: S1 and S2 muffled PULMONARY: diminished breath sounds bilaterally with no wheezing or rhonchi noted. ABDOMEN: soft. Nontender on exam. non-distended, normoactive bowel sounds. No palpable organomegaly. MUSCULOSKELETAL: No joint swelling or deformity. EXTREMITIES: No cyanosis, clubbing, or pedal edema. NEUROLOGICAL: Gross neurological examination did not reveal any focal deficits. SKIN: No rashes. Assessment: Right massive hemothorax, likely secondary to rib fractures from a fall through rafters, status post chest tube drainage and VATS procedure with concerns of possible empyema, cultures growing MSSA Leukocytosis, secondary to above Right anterolateral seventh rib fracture secondary to a fall Right diaphragmatic rupture and repair Ascending aortic aneurysm 4 cm with ectasia of the aortic root History of hypertension History of hyperlipidemia GI prophylaxis DVT prophylaxis Full code Plan: Recommend to continue with current medications and management with CT surgery as well as pulmonary Dr. Jonathan Hood following. Patient is at his post VATS procedure with Dr. Barnett as well as right diaphragmatic rupture repair Cultures growing MSSA and patient will receive a midline/PICC line per ID recommendations and will continue on 2 weeks of IV cefazolin Case management is following arranging for discharge antibiotics including home care and awaiting final authorization regarding antibiotic coverage. Continue to encourage increased activity as tolerated Encourage incentive spirometer use at least 10 times every hour while awake Will follow-up with repeat labs and monitor hemoglobin closely. Overall prognosis is guarded at this time Plan on discharge in the next 24 hours The impression and plan of care has been dictated by Rola Zaragoza, nurse pr actitioner as directed. Dr. Ravi MD I have performed a history and examination and MDM of this patient, discussed the same with the dictator, and agree with the dictator's assessment and plan as written ,documented as a scribe. Based on total visit time, I have performed more than 50% of the visit. Any additional findings or plans will be noted. Objective - Vital Signs Vital signs: Vital Signs Temp 99.4 F 09/27/24 19:11 Pulse 72 09/27/24 19:11 Resp 18 09/27/24 19:11 BP 127/63 09/27/24 19:11 Pulse Ox 94 L 09/27/24 19:11 FiO2 Intake & Output 09/27/24 09/27/24 09/28/24 06:59 18:59 06:59 Weight 89.5 kg 89.5 kg Other: Voiding Method Toilet - Labs CBC & Chem 7: 09/27/24 03:51 09/27/24 03:51 Labs: Abnormal Lab Results - Last 24 Hours (Table) 09/27/24 09/27/24 Range/Units 03:51 03:51 WBC 11.35 H (4.50-10.00) X 10*3/uL RBC 3.62 L (4.40-5.60) X 10*6/uL Hgb 9.8 L (13.0-17.0) g/dL Hct 31.6 L (39.6-50.0) % MCHC 31.0 L (32.0-37.0) g/dL MPV 12.3 H (9.5-12.2) FL Immature Gran # 0.13 H (0.00-0.04) X 10*3/uL Monocytes # 1.01 H (0.20-1.00) X 10*3/uL Eosinophils # 0.91 H (0.04-0.35) X 10*3/uL Carbon Dioxide 21.1 L (21.6-31.8) mmol/L BUN/Creatinine Ratio 24.78 H (12.00-20.00) Ratio Total Bilirubin <0.2 L (0.3-1.2) mg/dL Total Protein 5.2 L (6.2-8.2) g/dL Albumin 3.2 L (3.8-4.9) g/dL Microbiology - Last 24 Hours (Table) 09/22/24 11:00 Anaerobic Culture - Final Pleural Fluid 09/22/24 11:00 Gram Stain - Final Pleural Fluid Body Fluid Culture - Final 09/25/24 16:52 Blood Culture - Preliminary Blood
[2024-09-28 08:16] VITALS: BP 144/78; PULSE 67; RESP 16; TEMP 97.7
[2024-09-28 09:14] LABS: ALT 26 U/L (10-49); AST 18 U/L (14-35); Albumin 3.1 g/dL (3.8-4.9); Albumin/Globulin Ratio 1.41 Ratio (1.60-3.17); Alkaline Phosphatase 61 U/L (41-126); BUN/Creat Ratio 18.44 Ratio (12.00-20.00); Blood Urea Nitrogen 16.6 mg/dL (9.0-27.0); Calcium 8.9 mg/dL (8.7-10.3); Carbon Dioxide 23.4 mmol/L (21.6-31.8); Chloride 107 mmol/L (96-109); Globulin 2.2 g/dL (1.6-3.3); Glucose 98 mg/dL (70-110); Potassium 4.9 mmol/L (3.5-5.5); Sodium 138 mmol/L (135-145); Total Bilirubin 0.2 mg/dL (0.3-1.2); Total Protein 5.3 g/dL (6.2-8.2)
[2024-09-28 10:36] LABS: Basophils # (A) 0.04 X 10*3/uL (0.00-0.10); Basophils % (A) 0.4 %; Eosinophils # (A) 0.98 X 10*3/uL (0.04-0.35); Eosinophils % (A) 10.2 %; HCT 31.2 % (39.6-50.0); HGB 9.8 g/dL (13.0-17.0); Lymphocytes # (A) 2.11 X 10*3/uL (0.90-5.00); MCH 27.3 pg (27.0-32.0); MCHC 31.4 g/dL (32.0-37.0); MCV 86.9 FL (80.0-97.0); Mean Platelet Volume 12.3 FL (9.5-12.2); Monocytes # (A) 0.78 X 10*3/uL (0.20-1.00); Monocytes % (A) 8.2 %; NRBC Per 100 WBC 0 X 10*3/uL (0.00-0.01); Neutrophils # (A) 5.52 X 10*3/uL (1.80-7.70); Neutrophils % (A) 57.7 %; Platelet Count 330 X 10*3/uL (140-440); RBC 3.59 X 10*6/uL (4.40-5.60); RDW 14.3 % (11.5-14.5); WBC 9.57 X 10*3/uL (4.50-10.00)
--- NOTE | 2024-09-28 14:54 | P.PN ---
Subjective Progress Note Date: 09/28/24 Principal diagnosis: Reason for follow-up is right sided infected hematoma/empyema Patient is a 64-year-old male with a past medical history significant for hypertension hyperlipidemia osteoarthritis, apparently the patient did have a fall from standing position on September 11, 2024 and has led to fracture of seventh rib patient initially presented to [facility] patient noted to have a large right-sided effusion for the patient was transferred for [facility] patient is status post right thoracoscopy evacuation of hemothorax and repair of the ruptured diaphragm pleural fluid culture grew MSSA did have elevated white count prompted this consultation. On today's evaluation that is 09/28/2024, the patient continues to be afebrile, the patient is on room air and breathing comfortably, the Pt right-sided chest pain has decreased in intensity denies any cough or sputum production no nausea vomiting abdominal pain or diarrhea. Patient white count normalized to 9.57, creatinine 0.9 blood culture has been negative Objective - Vital Signs Vital signs: Vital Signs Temp 97.7 F 09/28/24 07:35 Pulse 67 09/28/24 07:35 Resp 16 09/28/24 07:35 BP 144/78 09/28/24 07:35 Pulse Ox 97 09/28/24 07:35 FiO2 Intake & Output 09/27/24 09/28/24 09/28/24 18:59 06:59 18:59 Weight 89.5 kg 90 kg Other: Voiding Method Toilet # Voids 1 - Exam GENERAL DESCRIPTION: Middle-age male up in the chair in no distress RESPIRATORY SYSTEM: Unlabored breathing , decreased breath sounds at bases HEART: S1 S2 regular rate and rhythm , ABDOMEN: Soft , no tenderness EXTREMITIES: No edema feet - Labs CBC & Chem 7: 09/28/24 03:35 09/28/24 03:35 Labs: Abnormal Lab Results - Last 24 Hours (Table) 09/28/24 09/28/24 Range/Units 03:35 03:35 RBC 3.59 L (4.40-5.60) X 10*6/uL Hgb 9.8 L (13.0-17.0) g/dL Hct 31.2 L (39.6-50.0) % MCHC 31.4 L (32.0-37.0) g/dL MPV 12.3 H (9.5-12.2) FL Immature Gran # 0.14 H (0.00-0.04) X 10*3/uL Eosinophils # 0.98 H (0.04-0.35) X 10*3/uL Total Bilirubin 0.2 L (0.3-1.2) mg/dL Total Protein 5.3 L (6.2-8.2) g/dL Albumin 3.1 L (3.8-4.9) g/dL Albumin/Globulin Ratio 1.41 L (1.60-3.17) Ratio Microbiology - Last 24 Hours (Table) 09/25/24 16:52 Blood Culture - Preliminary Blood 09/22/24 11:00 Anaerobic Culture - Final Pleural Fluid 09/22/24 11:00 Gram Stain - Final Pleural Fluid Body Fluid Culture - Final Assessment and Plan (1) Empyema lung Status: Acute Code(s): J86.9 - PYOTHORAX WITHOUT FISTULA SNOMED Code(s): 72394797 (2) MSSA (methicillin susceptible Staphylococcus aureus) infection Status: Acute Code(s): A49.01 - METHICILLIN SUSCEP STAPH INFECTION, UNSP SITE SNOMED Code(s): 196356304 (3) Leukocytosis Status: Acute Code(s): D72.829 - ELEVATED WHITE BLOOD CELL COUNT, UNSPECIFIED SNOMED Code(s): 046397666 Plan: 1patient presented hospital with right-sided chest pain in this patient who did have a fall with 7 rib fracture, with evidence of significant right-sided effusion in this patient who is s/p thoracoscopy drainage of infected hematoma a nd repair of the ruptured diaphragm did have elevated white count with a culture now showing MSSA concerning for infected hematoma/empyema. 2patient did get a midline outpatient IV cefazolin has been arranged for the patient which will be started tomorrow we will give 1 dose of Rocephin 2 g x 1 today to bridge him till tomorrow morning cefazolin started by the home care question concern answered Dictation was produced using [employer] dictation software. please excuse any grammatical, word or spelling errors. Time with Patient: Less than 30
--- NOTE | 2024-10-01 10:27 | P.DS ---
Providers Date of admission: 09/20/24 16:03 Expected date of discharge: 09/28/24 Attending physician: Drew Rodrigues Consults: 09/20/24 17:46 Consult Physician Routine Consulting Provider: Jonathan Hood Consult Reason/Comments: right pleural effusion Do you want consulting provider notified?: Already Contacted Consult Physician Urgent Consulting Provider: Tyrel Barnett Consult Reason/Comments: right sided pleural effusion, possible VATS Do you want consulting provider notified?: Yes 09/25/24 15:53 Consult Physician Routine Consulting Provider: Viv Rivers Consult Reason/Comments: high wbc Do you want consulting provider notified?: Yes Primary care physician: Prince Salazar [facility] Course: Final diagnosis Right massive hemothorax, likely secondary to rib fractures from a fall through rafters, status post chest tube drainage and VATS procedure with concerns of possible empyema, cultures growing MSSA Leukocytosis, secondary to above Right anterolateral seventh rib fracture secondary to a fall Right diaphragmatic rupture and repair Ascending aortic aneurysm 4 cm with ectasia of the aortic root History of hypertension History of hyperlipidemia GI prophylaxis DVT prophylaxis Full code Discharge disposition Patient is being discharged in a stable condition with guarded prognosis to home. Patient will follow-up with Dr. Prince Salazar in the outpatient setting upon discharge. Patient is to continue with current medications and outpatient follow-up with infectious disease, cardiothoracic surgery, pulmonary outpatient as scheduled. Total time taken is greater than 35 minutes. Hospital course This is a 64-year-old male who was recently admitted with a right massive hemothorax sent over from [facility] for further CT surgery evaluation. Patient evaluated by pulmonary along with CT surgery also noted to have multiple rib fractures with a developed hemothorax status post VATS procedure with concerns of possible empyema. Cultures growing MSSA and patient being followed by infectious disease recommending outpatient IV antibiotics. Patient has received a PICC line and arrangements made with case management for discharge planning. Patient reports to feeling improved and also is status post right diaphragmatic rupture repair with CT surgery. Patient to follow-up with consultations outpatient and has been cleared by consultations for surgery. Please refer to other consultation notes for further HPI. Patient reports to feeling significantly improved and extremely anxious to go home. Patient is on room air with no reports of shortness of breath. Patient remains afebrile. Patient has received a PICC line and will be discharged today. Courage continued incentive spirometer use while at home. Currently no reports of chest pain, shortness of breath, or palpitations. Patient is afebrile. No reports of nausea or vomiting and patient is tolerating diet. Patient will be discharged home today. Guarded prognosis Physical exam: Gen: This is a 64-year-old male who is awake, alert and oriented x 3, well- developed, well-nourished HEENT: Head is atraumatic, normocephalic. Pupils equal, round. Sclerae is anicteric. NECK: Supple. No JVD. No lymphadenopathy. No thyromegaly. LUNGS: Diminished breath sounds bilaterally otherwise clear to auscultation. No wheezes or rhonchi. No intercostal retractions. HEART: Regular rate and rhythm. No murmur. ABDOMEN: Soft. Bowel sounds are present. No masses. No tenderness. EXTREMITIES: No pedal edema. No calf tenderness. NEUROLOGICAL: Patient is awake, alert and oriented x3. Cranial nerves 2 through 12 are grossly intact. Please refer to medication reconciliation sheet for a list of medications. The impression and plan of care has been dictated by Rola Zaragoza, Nurse Practitioner as directed. Dr. Ravi MD I have performed a history and examination and MDM of this patient, discussed the same with the dictator, and agree with the dictator's assessment and plan as written ,documented as a scribe. Based on total visit time, I have performed more than 50% of the visit. Patient Condition at Discharge: Good Plan - Discharge Summary Discharge Rx Participant: No New Discharge Prescriptions: New Pantoprazole [Protonix] 40 mg PO AC-BRKFST #30 tab Sennosides-Docusate Sodium [Senokot-S] 1 each PO HS PRN #30 tab PRN Reason: Constipation Acetaminophen Tab [Tylenol] 650 mg PO Q6HR PRN tab PRN Reason: Fever And/ Or Pain Lidocaine 4% Patch 1 patch TOPICAL DAILY patch Multivitamins, Thera [Multivitamin (formulary)] 1 each PO DAILY@1200 #30 tab Continue Simvastatin [Zocor] 20 mg PO HS amLODIPine [Norvasc] 5 mg PO DAILY Discharge Medication List Simvastatin [Zocor] 20 mg PO HS 02/07/16 [History] amLODIPine [Norvasc] 5 mg PO DAILY 09/20/24 [History] Acetaminophen Tab [Tylenol] 650 mg PO Q6HR PRN tab 09/28/24 [Rx] Lidocaine 4% Patch 1 patch TOPICAL DAILY patch 09/28/24 [Rx] Multivitamins, Thera [Multivitamin (formulary)] 1 each PO DAILY@1200 #30 tab 09/28/24 [Rx] Pantoprazole [Protonix] 40 mg PO AC-BRKFST #30 tab 09/28/24 [Rx] Sennosides-Docusate Sodium [Senokot-S] 1 each PO HS PRN #30 tab 09/28/24 [Rx] Follow up Appointment(s)/Referral(s): Tyrel Barnett MD [STAFF PHYSICIAN] - 10/05/24 10:00 am (May see Dr. Barnett or Dick Patton QUALITY ASSURANCE SUPERVISOR FINAL for incision check next week) Good Patton NPC [Nurse Practitioner] - 10/05/24 10:00 am (Please follow-up in the office located at [address] [place] [address], [facility]. Office number is [phone].) [facility], [REFERRING] - As Needed ([facility] will deliver supplies to your house on the evening of discharge between 6-8pm. ) [facility] [NON-STAFF] - 1-2 Days ([facility] will call you to schedule your in home nursing visits to begin IV antibiotic teaching. Your first visit will be tomorrow.) Jonathan Hood [STAFF PHYSICIAN] - 10/12/24 12:30 pm Viv Rivers MD [STAFF PHYSICIAN] - 10/04/24 3:00 pm Activity/Diet/Wound Care/Special Instructions: Activity limited until follow-up Follow-up with primary care provider on discharge Follow-up with pulmonary in 1 week Follow-up with infectious disease in 1 week Follow-up with CT surgery outpatient Continue using incentive spirometer at least 10 times every hour while awake Continue with antibiotics per ID recommendations Continue home care DISCHARGE INSTRUCTIONS: 1. No driving for 1 week, or until physician gives their ok. 2. No lifting, pushing, or pulling more than 10 pounds for 1 week. The physician will advise of any restriction changes. 3. Continue pain control per as needed orders. Alternate acetaminophen (Tylenol) and ibuprofen (Motrin/Advil) for pain. 4. Continue with incentive spirometry and splinting until otherwise directed by the physician. 5. Leave chest tube dressing for 48 hours. After that, remove all dressings and shower daily. 6. Routine incision care. No powders, lotions, ointments on incisions. 7. Please call surgeon/QUALITY ASSURANCE SUPERVISOR FINAL for temp greater than 101 F or purulent drainage from incisions. Discharge Disposition: HOME WITH HOME HEALTH SERVICES
== END 2024-09-28 11:51 | disposition home health service (06) | DRG 163 ==
LOC: 3SCARD 09-20 16:03 → 4SSUR 09-26 18:51
PROVIDERS: ADMIT Hospitalist; ATTEND Hospitalist
PROC: 0BQT4ZZ Repair Diaphragm, Percutaneous Endoscopic Approach (ICD-10-PCS; 2024-09-24)
PROC: 0WC94ZZ Extirpation of Matter from Right Pleural Cavity, Percutaneous Endoscopic Approach (ICD-10-PCS; principal; 2024-09-24 07:30)
DX: S27.1XXA Traumatic hemothorax, initial encounter (principal); J86.9 Pyothorax without fistula; J90 Pleural effusion, not elsewhere classified; S22.31XA Fracture of one rib, right side, initial encounter for closed fracture; J98.11 Atelectasis; S27.803A Laceration of diaphragm, initial encounter; E87.1 Hypo-osmolality and hyponatremia; I71.21 Aneurysm of the ascending aorta, without rupture; I11.9 Hypertensive heart disease without heart failure; E78.5 Hyperlipidemia, unspecified; D64.9 Anemia, unspecified; M19.90 Unspecified osteoarthritis, unspecified site; B95.61 Methicillin susceptible Staphylococcus aureus infection as the cause of diseases classified elsewhere; W17.89XA Other fall from one level to another, initial encounter; Y92.61 Building [any] under construction as the place of occurrence of the external cause; Y99.8 Other external cause status; Z79.899 Other long term (current) drug therapy; Z96.642 Presence of left artificial hip joint; Z82.49 Family history of ischemic heart disease and other diseases of the circulatory system
CPT/HCPCS: 32551; 36410; 64999; 71045; 71046; 71250; 74176; 76604; 76937; 76942; 80048; 80053; 82945; 83615; 85025; 85027; 85610; 85730; 86850; 86900; 86901; 87040; 87070; 87075; 87077; 87186; 87205; 88108; 88304; 88305; 89050; 93306; 94640; 94664

== ENCOUNTER → 2024-10-11 | Outpatient (CLI) | payer MEDICARE, OTHER ==
[2024-10-11 20:39] LABS: HCT 37.7 % (39.6-50.0); HGB 11.5 g/dL (13.0-17.0); MCH 26.4 pg (27.0-32.0); MCHC 30.5 g/dL (32.0-37.0); MCV 86.7 FL (80.0-97.0); Mean Platelet Volume 12.4 FL (9.5-12.2); NRBC Per 100 WBC 0 X 10*3/uL (0.00-0.01); Platelet Count 314 X 10*3/uL (140-440); RBC 4.35 X 10*6/uL (4.40-5.60); RDW 14.9 % (11.5-14.5); WBC 10.12 X 10*3/uL (4.50-10.00)
== END | disposition home or self-care (01) ==
LOC: LABWHC1 15:07
PROVIDERS: ATTEND Internal Medicine Infectious Disease
DX: J86.9 Pyothorax without fistula (principal); B95.61 Methicillin susceptible Staphylococcus aureus infection as the cause of diseases classified elsewhere; Z79.2 Long term (current) use of antibiotics
CPT/HCPCS: 36415; 82565; 84520; 85027; 86140

== ENCOUNTER → 2024-11-16 | Outpatient (CLI) | payer MEDICARE, OTHER ==
--- NOTE | 2024-11-16 10:44 | XR ---
EXAMINATION TYPE: XR chest 2V DATE OF EXAM: 11/16/2024 9:30 AM COMPARISON: 09/26/2024 CLINICAL INDICATION: Male, 64 years old with history of J44.9 COPD, , TECHNIQUE: Frontal and lateral views FINDINGS: Reverse right shoulder arthroplasty partially visualized. Heart normal size. Aorta and pulmonary vasc ulature within normal limits. Some strandy atelectasis in the lower lungs. Bilateral lower lung nippl e shadows. No lor consolidation or pleural effusion. IMPRESSION: Some strandy atelectasis in the lower lungs. No definite acute process. [facility], Workstation: [facility], 11/16/2024 10:42 AM
== END | disposition home or self-care (01) ==
LOC: RADXRMAIN 09:16
PROVIDERS: ATTEND Internal Medicine Sleep Medicine
DX: J44.9 Chronic obstructive pulmonary disease, unspecified (principal); J98.11 Atelectasis; Z96.611 Presence of right artificial shoulder joint
CPT/HCPCS: 71046